=== PATIENT | female | born 1965 | race Caucasian/White ===

== ENCOUNTER 2017-02-14 16:06 | Inpatient (IN) | payer MEDICARE, MEDICAID ==
[~2017-02-14] VITALS: Ht 160 cm; Wt 54.7 kg
[~2017-02-14 16:06] MED LIST: ADVIL200 M1 PO; ANAPROX DS550 MG PO; ATIVAN0.5 MG PO; AUGMENTIN 875 M1 TAB PO; CATAPRES0.1 MG PO; CIPROFLOXACIN500 MG PO; CLONIDINE0.1 MG; CLONIDINE0.1 MG PO; COREG25 MG PO; DIAZEPAM5 MG; FLEXERIL10 MG PO; HYDROCHLOROTHIAZIDE; KEFLEX500 MG PO; LISINOPRIL; LISINOPRIL PO; LISINOPRIL/HCTZ1 TA4 PO; LISINOPRIL5 MG PO; LOMOTIL 0.025 M1 TA1 PO; MAG-OX 400400 MG; MEDROL DOSEPAK4 MG PO; NAPROSYN500 MG PO; NICOTROL 10MG I1 BOX; NKHM; NORCO 5-325 TA1 EACH PO; ROBAXIN500 M1 PO; SYNTHROID,LEVO75 MCG PO; SYNTHROID,LEVO88 MCG PO; VALIUM10 MG PO; VIBRAMYCIN100 MG PO; VICODIN 5/500 505 MG PO; ZITHROMAX Z PA250 MG PO; ZOFRAN ODT4 MG SL
[2017-02-14 16:09] VITALS: BP 178/90
[2017-02-14] MEDS ORDERED: LISINOPRIL5 MG PO (16:14)
[2017-02-14] MEDS ORDERED: ACETAMINOPHEN-H1 TA2 PO (16:14)
[2017-02-14] MEDS ORDERED: LEVOTHYROXIN0.075 M1 PO (16:14)
[2017-02-14 16:38] VITALS: BP 168/82
[2017-02-14 16:48] LABS: BASO # 0.1 10*3/uL (0.0-0.1); BASO % 0.5 % (0.0-1.0); EOS # 0.3 10*3/uL (0.0-0.4); EOS % 3.5 % (1.0-4.0); HEMATOCRIT 49.3 % (37.0-47.0); HEMOGLOBIN 15.9 g/dl (12.0-16.0); LYMPH # 3.5 10*3/uL (1.3-4.4); LYMPH % 35.8 % (27.0-41.0); MEAN CELL VOLUME 103.8 fl (81.0-99.0); MEAN CORPUSCULAR HGB 33.5 pg (27.0-31.0); MEAN CORPUSCULAR HGB CONC 32.3 g/dl (33.0-37.0); MEAN PLATELET VOLUME 9.5 fl (9.6-12.3); MONO % 10.4 % (3.0-9.0); NEUT # 4.9 10*3/uL (2.3-7.9); NEUT % 49.6 % (47.0-73.0); PLATELET COUNT AUTOMATED 238 10*3/uL (130-400); RED BLOOD COUNT 4.75 10*6/uL (4.10-5.10); RED CELL DISTRI WIDTH 13.1 % (0-14.5); WHITE BLOOD COUNT 9.8 10*3/uL (4.8-10.8)
[2017-02-14 17:03] LABS: PROTHROMBIN TIME 11.1 SECONDS (9.0-12.4)
[2017-02-14 17:05] LABS: ALBUMIN 2.9 gm/dl (3.1-4.5); ALKALINE PHOSPHATASE 137 U/L (45-117); BILIRUBIN, TOTAL 0.2 mg/dl (0.2-1.0); BUN 3 mg/dl (7-24); C-REACTIVE PROTEIN 1.81 MG/DL (0-0.3); CARBON DIOXIDE 29 mmol/L (21-32); CHLORIDE 101 mmol/L (98-107); CKMB 0.8 ng/ml (0.5-3.6); CPK 60 U/L (26-192); EST GLOM FILT AFRICAN AMERICAN > 60 ml/min; GLUCOSE 102 mg/dL (65-99); MAGNESIUM 1.9 mg/dL (1.5-2.1); POTASSIUM 3.5 mmol/L (3.5-5.1); SGOT/AST 24 IU/L (3-35); SGPT/ALT 18 U/L (12-78); SODIUM 139 mmol/L (136-145); TOTAL PROTEIN 7.5 gm/dL (6.4-8.2); TROPONIN I < 0.015 ng/ml (<0.045)
[2017-02-14 18:54] VITALS: BP 156/83
[2017-02-14 20:00] VITALS: BP 158/79
[2017-02-15] VITALS: BP 163/83
[2017-02-15 06:19] LABS: HEMOGLOBIN 14.6 g/dl (12.0-16.0); MEAN CELL VOLUME 102.3 fl (81.0-99.0); MEAN CORPUSCULAR HGB CONC 33.2 g/dl (33.0-37.0); MEAN PLATELET VOLUME 9.5 fl (9.6-12.3); PLATELET COUNT AUTOMATED 209 10*3/uL (130-400); RED CELL DISTRI WIDTH 12.8 % (0-14.5); WHITE BLOOD COUNT 2.9 10*3/uL (4.8-10.8)
[2017-02-15 06:40] LABS: BUN 3 mg/dl (7-24); CARBON DIOXIDE 25 mmol/L (21-32); CHLORIDE 96 mmol/L (98-107); CHOLESTEROL 91 mg/dL (<200); EST GLOM FILT AFRICAN AMERICAN > 60 ml/min; FREE T4 1.59 ng/dl (0.76-1.46); GLUCOSE 166 mg/dL (65-99); HDL CHOLESTEROL 45 mg/dl (40-60); LDL CHOLESTEROL 34 mg/dL (9-159); PHOSPHOROUS 3.5 mg/dL (2.5-4.9); SODIUM 138 mmol/L (136-145); TRIGLYCERIDES 59 mg/dl (<150); VLDL CHOLESTEROL 12 mg/dL (6-40)
[2017-02-15 07:12] LABS: MONOCYTE # 0.1 10*3/uL (0.1-1.0); NEUTROPHIL # 1.9 10*3/uL (2.3-7.9); NEUTROPHILS 64 % (47-73); PLATELET SUFFICIENCY NORMAL (NORMAL); ROULEAUX SLIGHT; TOTAL CELLS COUNTED 100 #CELLS
[2017-02-15 07:30] LABS: THYROID STIM HORMONE (HS) 0.049 uIU/ml (0.358-4.75)
[2017-02-15 08:00] VITALS: BP 160/72
[2017-02-15 08:09] LABS: FOLIC ACID 2.93 ng/mL (>5.38); VITAMIN D, 25-HYDROXY 16.4 ng/mL (30-100)
[2017-02-15 12:00] VITALS: BP 136/71
[2017-02-15 16:00] VITALS: BP 155/68
[2017-02-15 20:00] VITALS: BP 125/82
[2017-02-16] VITALS: BP 149/71
[2017-02-16 06:47] LABS: HEMOGLOBIN 15.2 g/dl (12.0-16.0); LYMPH # 1.4 10*3/uL (1.3-4.4); LYMPH % 20.3 % (27.0-41.0); MEAN CELL VOLUME 102.7 fl (81.0-99.0); MEAN CORPUSCULAR HGB 33.9 pg (27.0-31.0); MEAN PLATELET VOLUME 9.6 fl (9.6-12.3); MONO # 0.2 10*3/uL (0.1-1.0); MONO % 2.8 % (3.0-9.0); NEUT # 5.1 10*3/uL (2.3-7.9); NEUT % 76.3 % (47.0-73.0); PLATELET COUNT AUTOMATED 237 10*3/uL (130-400); RED BLOOD COUNT 4.48 10*6/uL (4.10-5.10); RED CELL DISTRI WIDTH 12.9 % (0-14.5); WHITE BLOOD COUNT 6.7 10*3/uL (4.8-10.8)
[2017-02-16 07:13] LABS: BUN 5 mg/dl (7-24); CARBON DIOXIDE 29 mmol/L (21-32); CHLORIDE 98 mmol/L (98-107); EST GLOM FILT AFRICAN AMERICAN > 60 ml/min; GLUCOSE 136 mg/dL (65-99); POTASSIUM 3.9 mmol/L (3.5-5.1); SODIUM 138 mmol/L (136-145)
[2017-02-16 08:00] VITALS: BP 126/76
[2017-02-16] MEDS ORDERED: D-1000 185 MG-11 TAB PO (10:45)
[2017-02-16] MEDS ORDERED: PREDNISONE10 MG PO (10:46)
[2017-02-16] MEDS ORDERED: LEVAQUIN500 M2 PO (10:48)
[2017-02-16] MEDS ORDERED: NATURE'S BLEND F1 MG PO (10:49)
== END 2017-02-16 12:45 | disposition home or self-care (01) | DRG 191 ==
LOC: ED 16:06 → EDHOLD 17:42 → 5E 17:42
PROVIDERS: Emergency Medicine; Hospitalist; Student in an Organized Health Care Education/Training Program
DX: J44.1 Chronic obstructive pulmonary disease with (acute) exacerbation (principal); E44.0 Moderate protein-calorie malnutrition; D75.89 Other specified diseases of blood and blood-forming organs; I10 Essential (primary) hypertension; E78.5 Hyperlipidemia, unspecified; E03.9 Hypothyroidism, unspecified; D72.819 Decreased white blood cell count, unspecified; E87.6 Hypokalemia; E55.9 Vitamin D deficiency, unspecified; E53.8 Deficiency of other specified B group vitamins; F17.210 Nicotine dependence, cigarettes, uncomplicated; M81.0 Age-related osteoporosis without current pathological fracture; M48.00 Spinal stenosis, site unspecified; Z71.6 Tobacco abuse counseling; Z82.5 Family history of asthma and other chronic lower respiratory diseases; Z82.49 Family history of ischemic heart disease and other diseases of the circulatory system; Z86.73 Personal history of transient ischemic attack (TIA), and cerebral infarction without residual deficits; Z88.6 Allergy status to analgesic agent; Z88.1 Allergy status to other antibiotic agents; Z88.8 Allergy status to other drugs, medicaments and biological substances; Z79.1 Long term (current) use of non-steroidal anti-inflammatories (NSAID); Z79.899 Other long term (current) drug therapy; Z68.21 Body mass index [BMI] 21.0-21.9, adult; Z82.3 Family history of stroke

== ENCOUNTER → 2017-05-08 | Outpatient (CLI) | payer MEDICARE, MEDICAID ==
[~2017-05-08] MED LIST changes: +ACETAMINOPHEN-H1 TA2 PO; +D-1000 185 MG-11 TAB PO; +LEVAQUIN500 M2 PO; +LEVOTHYROXIN0.075 M1 PO; +NATURE'S BLEND F1 MG PO; +PREDNISONE10 MG PO
== END | disposition home or self-care (01) ==
LOC: RAD 11:51
DX: J43.8 Other emphysema (principal); I10 Essential (primary) hypertension; J40 Bronchitis, not specified as acute or chronic; Z87.891 Personal history of nicotine dependence; Z86.73 Personal history of transient ischemic attack (TIA), and cerebral infarction without residual deficits

== ENCOUNTER 2017-06-05 19:34 | Emergency (ER) | payer MEDICARE, MEDICAID ==
[~2017-06-05] VITALS: Ht 160 cm; Wt 53.5 kg
[2017-06-05 20:55] LABS: BASO # 0.1 10*3/uL (0.0-0.1); BASO % 0.5 % (0.0-1.0); EOS # 0.3 10*3/uL (0.0-0.4); EOS % 2.7 % (1.0-4.0); HEMATOCRIT 48.3 % (37.0-47.0); HEMOGLOBIN 15.9 g/dl (12.0-16.0); LYMPH # 4.4 10*3/uL (1.3-4.4); LYMPH % 40.4 % (27.0-41.0); MEAN CELL VOLUME 98.2 fl (81.0-99.0); MEAN CORPUSCULAR HGB 32.3 pg (27.0-31.0); MEAN CORPUSCULAR HGB CONC 32.9 g/dl (33.0-37.0); MEAN PLATELET VOLUME 9.5 fl (9.6-12.3); MONO # 0.8 10*3/uL (0.1-1.0); MONO % 7.7 % (3.0-9.0); NEUT # 5.3 10*3/uL (2.3-7.9); NEUT % 48.5 % (47.0-73.0); PLATELET COUNT AUTOMATED 230 10*3/uL (130-400); RED BLOOD COUNT 4.92 10*6/uL (4.10-5.10); RED CELL DISTRI WIDTH 13.2 % (0-14.5)
[2017-06-05 21:03] LABS: INTERNATIONAL NORM RATIO 1.1 (2.0-3.5)
[2017-06-05 21:10] LABS: ALBUMIN 2.7 gm/dl (3.1-4.5); ALKALINE PHOSPHATASE 168 U/L (45-117); BUN 2 mg/dl (7-24); CHLORIDE 100 mmol/L (98-107); CREATININE 0.73 mg/dL (0.55-1.02); LIPASE 92 U/L (73-393); MAGNESIUM 1.7 mg/dL (1.5-2.1); POTASSIUM 4.1 mmol/L (3.5-5.1); SGOT/AST 17 IU/L (3-35); SGPT/ALT 16 U/L (12-78); SODIUM 136 mmol/L (136-145)
[2017-06-05 21:13] LABS: ACETAMINOPHEN (TYLENOL) < 2.0 ug/ml (10-30); TROPONIN I < 0.015 ng/ml (<0.045)
[2017-06-05 22:44] LABS: BILIRUBIN NEGATIVE (NEGATIVE); BLOOD NEGATIVE (NEGATIVE); CLARITY CLEAR (CLEAR); COLOR YELLOW (YELLOW); GLUCOSE NEGATIVE (NEGATIVE); KETONE NEGATIVE (NEGATIVE); LEUKO ESTERASE TRACE (NEGATIVE); NITRITE NEGATIVE (NEGATIVE); PH 5.5 (5.0-9.0); SPECIFIC GRAVITY <= 1.005 (1.005-1.030); UROBILINOGEN 0.2 E.U./dl (0.2-1.0)
[2017-06-05 22:53] LABS: URINE AMPHETAMINES < 1000 (1000ng/ml); URINE BARBITURATES < 200 (200ng/ml); URINE BENZODIAZEPINES > 200 (200ng/ml); URINE CANNABINOIDS (THC) < 50 (50ng/ml); URINE COCAINE < 300 (300ng/ml); URINE METHADONE < 300 (300ng/ml); URINE OPIATES > 300 (300ng/ml)
[2017-06-05 22:55] LABS: URINE PHENCYCLIDINE < 25 (25ng/ml)
[2017-06-05 22:58] LABS: BACTERIA TRACE; EPITHELIAL CELLS 15-20; RBC 0-2 rbc/hpf (0-2)
[2017-06-05] MEDS ORDERED: CYCLOBENZAPRINE5 M3 PO (23:21)
== END 2017-06-05 23:30 | disposition home or self-care (01) ==
LOC: ED 19:34
PROVIDERS: Emergency Medicine Emergency Medical Services
DX: M54.12 Radiculopathy, cervical region (principal); F32.9 Major depressive disorder, single episode, unspecified; F17.210 Nicotine dependence, cigarettes, uncomplicated; J44.9 Chronic obstructive pulmonary disease, unspecified; E78.5 Hyperlipidemia, unspecified; I10 Essential (primary) hypertension; E03.9 Hypothyroidism, unspecified; Z79.899 Other long term (current) drug therapy; Z88.1 Allergy status to other antibiotic agents; Z98.890 Other specified postprocedural states; Z90.89 Acquired absence of other organs; Z88.6 Allergy status to analgesic agent; Z86.73 Personal history of transient ischemic attack (TIA), and cerebral infarction without residual deficits

== ENCOUNTER 2017-06-12 12:21 | Emergency (ER) | payer MEDICARE, MEDICAID ==
[~2017-06-12] VITALS: Ht 160 cm; Wt 53.5 kg
[~2017-06-12 12:21] MED LIST changes: +CYCLOBENZAPRINE5 M3 PO
[2017-06-12 14:20] LABS: BASO # 0.1 10*3/uL (0.0-0.1); BASO % 0.5 % (0.0-1.0); EOS # 0.3 10*3/uL (0.0-0.4); EOS % 2.6 % (1.0-4.0); HEMATOCRIT 47.8 % (37.0-47.0); LYMPH # 4.4 10*3/uL (1.3-4.4); LYMPH % 46.5 % (27.0-41.0); MEAN CELL VOLUME 97.6 fl (81.0-99.0); MEAN CORPUSCULAR HGB 32.7 pg (27.0-31.0); MEAN CORPUSCULAR HGB CONC 33.5 g/dl (33.0-37.0); MEAN PLATELET VOLUME 9.3 fl (9.6-12.3); MONO # 0.7 10*3/uL (0.1-1.0); MONO % 7.2 % (3.0-9.0); NEUT # 4.1 10*3/uL (2.3-7.9); PLATELET COUNT AUTOMATED 182 10*3/uL (130-400); RED CELL DISTRI WIDTH 13.5 % (0-14.5); WHITE BLOOD COUNT 9.5 10*3/uL (4.8-10.8)
[2017-06-12 14:28] LABS: ACT PARTIAL THROMBO TIME 25.7 SECONDS (20.8-31.5); INTERNATIONAL NORM RATIO 1.1 (2.0-3.5)
[2017-06-12 14:46] LABS: ALBUMIN 2.6 gm/dl (3.1-4.5); ALKALINE PHOSPHATASE 163 U/L (45-117); BUN 2 mg/dl (7-24); CHLORIDE 102 mmol/L (98-107); CREATININE 0.76 mg/dL (0.55-1.02); POTASSIUM 3.8 mmol/L (3.5-5.1); SGOT/AST 18 IU/L (3-35); SGPT/ALT 13 U/L (12-78); SODIUM 140 mmol/L (136-145); TOTAL PROTEIN 6.9 gm/dL (6.4-8.2)
[2017-06-12 14:47] LABS: ETHYL ALCOHOL < 3.0 mg/dl (<3); TROPONIN I < 0.015 ng/ml (<0.045)
== END 2017-06-12 16:56 | disposition short-term general hospital (02) ==
LOC: ED 12:21
PROVIDERS: Physician Assistant
DX: I63.9 Cerebral infarction, unspecified (principal); F17.200 Nicotine dependence, unspecified, uncomplicated; Z98.890 Other specified postprocedural states; Z90.89 Acquired absence of other organs; Z79.899 Other long term (current) drug therapy; Z88.1 Allergy status to other antibiotic agents; Z88.6 Allergy status to analgesic agent

== ENCOUNTER 2017-07-17 15:14 | Inpatient (IN) | payer MEDICARE, MEDICAID ==
[~2017-07-17] VITALS: Ht 160 cm; Wt 52.3 kg
--- NOTE | ~2017-07-17 | DS ---
[place], [place] DISCHARGE SUMMARY [facility] [id number] UNIT #: [id number] ROOM: 427 DOCTOR: HARVEY VASQUEZ MD BIRTHDATE: [birth year] DOS: 07/19/2017 HOSPITAL COURSE: This patient is not known to me, comes in with low potassium from the doctor's office. Potassium was 2.2. The patient was admitted. After admission was given IV and p.o. and next day continued to be on the low side. We continued the IV fluids and continued repeat potassium supplementation. This morning's labs are not available yet, but I am hoping to have it soon and if it looks good, the patient should be able to go home and follow up with her PCP. The patient used to take ____, which she stopped taking on her own because it was upsetting the stomach. Advised the patient ____ restart the medication. DISCHARGE MEDICATIONS: Coreg 12.5 twice a day, lisinopril 5 daily, levothyroxine 75 mcg at bedtime, [place] 5 t.i.d. p.r.n., vitamin D 1000 units daily, Flexeril 5 b.i.d. p.r.n., potassium 20 daily, atorvastatin 40 daily, Phenergan 25 at bedtime, aspirin 81 daily, tramadol 50 q. 4 hours p.r.n., Remeron 15 at bedtime, thiamine 100 daily, Ventolin 2 puffs t.i.d. p.r.n. for shortness of breath, senna 8.6 mg daily. DIAGNOSES: 1. Hypokalemia. 2. History of cerebrovascular accident. 3. Benign hypertension. 4. Chronic headaches. 5. Moderate nicotine abuse. 6. Chronic back pain. HARVEY VASQUEZ MD CM:DISCHARG [id number] HARVEY VASQUEZ MD 07/19/17 1703 interface
--- NOTE | ~2017-07-17 | PR ---
[place], [place] PROGRESS NOTE NAME: AMELIA OWUSU [facility] #: [id number] UNIT #: [id number] ROOM: 427 DOCTOR: HARVEY VASQUEZ MD BIRTHDATE: [birth year] DOS: SUBJECTIVE: The patient is doing fine without any complaints. We are waiting her blood work this morning. OBJECTIVE: VITAL SIGNS: Blood pressure is 140/60, pulse of 80, respirations 20, temperature 98.8. LUNGS: Clear. HEART: Regular. ABDOMEN: Soft. EXTREMITIES: Without any edema. ASSESSMENT AND PLAN: Hypokalemia. Supplementation was given both IV and p.o. If the labs do look better, we are planning to discharge her to home today. HARVEY VASQUEZ MD CM:PNTRANS [phone] HARVEY VASQUEZ MD 07/31/17 0955 interface
--- NOTE | ~2017-07-17 | WRIGHTHP ---
[place], [place] PATIENT HISTORY AND PHYSICAL EXAM NAME: AMELIA OWUSU [facility] #: [id number] UNIT #: [id number] ROOM: 427 DOCTOR: HARVEY VASQUEZ MD BIRTHDATE: [birth year] DOS: 07/17/2017 HISTORY OF PRESENT ILLNESS: The patient is a 51-year-old, not known to me, comes in with complaints of low potassium. The patient states that she had blood work yesterday and the doctor's office called saying that her potassium was too low and so was sent out to the Emergency Room. She does not have any complaints of chest pains, palpitations, shortness of breath. She has no dizziness, lightheadedness, does not have any fever or chills. She used to take potassium supplements, but has not taken it for a month or so. PAST MEDICAL HISTORY: Significant for: 1. History of a CVA, for which she was hospitalized in May in [facility]. 2. Benign hypertension. 3. Continued nicotine abuse. 4. COPD. 5. Chronic back pain. MEDICATIONS: That she is on are Proventil p.r.n., aspirin 81 daily, atorvastatin 40 daily, Coreg 12.5 b.i.d., vitamin D 1000 units daily, Flexeril 5 b.i.d., Benadryl 25 at bedtime, levothyroxine 75 mcg at bedtime, Remeron 15 at bedtime, lisinopril 5 mg daily. SOCIAL HISTORY: Smoker of about 1 to 1-1/2 pack of cigarettes a day. She quit smoking about a month ago. After the stroke, she has not had any cigarettes. PHYSICAL EXAMINATION: GENERAL: She is awake and alert and oriented. VITAL SIGNS: Graphic trend shows blood pressure 162/86, pulse of 82, respirations 18, temperature 98.3. LUNGS: Clear. HEART: Regular. ABDOMEN: Soft, scaphoid. EXTREMITIES: Without any edema. NEUROLOGIC: No neurological deficits noticed. ASSESSMENT AND PLAN: 1. Hypokalemia. Potassium level is quite low. She was monitored and admitted, supplementation, both IV and p.o. have been ordered. 2. Hypomagnesemia. Supplements have been ordered. 3. Benign hypertension, fairly controlled. 4. History of carotid atherosclerosis with cerebrovascular accident. The patient was receiving PT, OT at home, but does not require any PT at this present time in the hospital. I will repeat labs again tomorrow. If it looks good, the plan is to discharge her to home tomorrow. [place], [place] PATIENT HISTORY AND PHYSICAL EXAM NAME: AMELIA OWUSU UNIT #: [id number] ROOM: [facility] DOCTOR: HARVEY VASQUEZ MD BIRTHDATE: [birth year] HARVEY VASQUEZ MD CM:HISPHYS:PATIENT HISTORY AND PHYSICAL EXAMINATION 8 HARVEY VASQUEZ MD 07/31/1755 interface
[2017-07-17 15:14] VITALS: BP 152/94
[~2017-07-17 15:14] MED LIST changes: -ASPIRIN CHEWABL81 MG PO; -BANOPHEN25 MG PO; -K-TAB20 MEQ PO; -LIPITOR40 MG PO; -MAGOX 400400 MG PO; -MIRTAZAPINE15 M1 PO; -NATURE'S BLEND100 M2 PO; -SENNA8.6 MG PO; -TRAMADOL HCL50 MG PO; -VENTOLIN,PR2 MG/5 ML PO
[2017-07-17 15:56] LABS: BASO # 0.1 10*3/uL (0.0-0.1); BASO % 0.5 % (0.0-1.0); EOS # 0.2 10*3/uL (0.0-0.4); EOS % 2.1 % (1.0-4.0); HEMATOCRIT 33.4 % (37.0-47.0); HEMOGLOBIN 11.1 g/dl (12.0-16.0); LYMPH # 3.9 10*3/uL (1.3-4.4); LYMPH % 34.7 % (27.0-41.0); MEAN CELL VOLUME 94.6 fl (81.0-99.0); MEAN CORPUSCULAR HGB 31.4 pg (27.0-31.0); MEAN CORPUSCULAR HGB CONC 33.2 g/dl (33.0-37.0); MEAN PLATELET VOLUME 9.4 fl (9.6-12.3); MONO # 0.8 10*3/uL (0.1-1.0); MONO % 6.9 % (3.0-9.0); NEUT # 6.2 10*3/uL (2.3-7.9); NEUT % 55.5 % (47.0-73.0); PLATELET COUNT AUTOMATED 334 10*3/uL (130-400); RED BLOOD COUNT 3.53 10*6/uL (4.10-5.10); RED CELL DISTRI WIDTH 13.1 % (0-14.5); WHITE BLOOD COUNT 11.1 10*3/uL (4.8-10.8)
[2017-07-17 16:00] VITALS: BP 161/87
[2017-07-17 16:07] LABS: ACT PARTIAL THROMBO TIME 25.3 SECONDS (20.8-31.5); INTERNATIONAL NORM RATIO 1.1 (2.0-3.5)
[2017-07-17 16:13] LABS: ALBUMIN 1.8 gm/dl (3.1-4.5); ALKALINE PHOSPHATASE 157 U/L (45-117); BUN 5 mg/dl (7-24); CHLORIDE 99 mmol/L (98-107); CREATININE 0.73 mg/dL (0.55-1.02); LIPASE 166 U/L (73-393); SGOT/AST 19 IU/L (3-35); SGPT/ALT 16 U/L (12-78); SODIUM 141 mmol/L (136-145); TOTAL PROTEIN 6.6 gm/dL (6.4-8.2)
[2017-07-17 16:14] LABS: TROPONIN I < 0.015 ng/ml (<0.045)
[2017-07-17 16:24] LABS: POTASSIUM 2.2 mmol/L (3.5-5.1)
[2017-07-17] MEDS ORDERED: K-TAB20 MEQ PO (16:52)
[2017-07-17] MEDS ORDERED: BANOPHEN25 MG PO (16:53)
[2017-07-17] MEDS ORDERED: LIPITOR40 MG PO (16:53)
[2017-07-17] MEDS ORDERED: ASPIRIN CHEWABL81 MG PO (16:54)
[2017-07-17] MEDS ORDERED: MIRTAZAPINE15 M1 PO (16:56)
[2017-07-17] MEDS ORDERED: TRAMADOL HCL50 MG PO (16:56)
[2017-07-17] MEDS ORDERED: SENNA8.6 MG PO (16:57)
[2017-07-17] MEDS ORDERED: NATURE'S BLEND100 M2 PO (16:59)
[2017-07-17] MEDS ORDERED: VENTOLIN,PR2 MG/5 ML PO (17:00)
--- NOTE | 2017-07-17 17:38 | NUR ---
PATIENT HAS BED WAITING ON FLOOR TO CALL BACK THE ROOM IS BEING CLEANED
--- NOTE | 2017-07-17 17:50 | NUR ---
PATIENT WITH MAG SULFATE INFUSING AT TIME OF ADMISSION
--- NOTE | 2017-07-17 17:56 | NUR ---
DR. VASQUEZ CALLED AND ORDERS RECIEVED. SEE ORDERS DOCUMENTATION. DR. VASQUEZ HAD NO OTHER CONCERNS AT THIS TIME.
--- NOTE | 2017-07-17 17:56 | NUR ---
A 51, admitted to , under the services of HARVEY Lopez MD with a diagnosis of HYPOKALEMIA. Chief complaint is HYPOKALEMIA. Patient arrived via OTHER from ER. Monitor applied. Initial assessment completed. Vital signs taken and recorded. HARVEY LOPEZ MD notified of admission to the unit. Orders received. See assessment for past medical history, medications and allergies. Patient and/or family oriented to unit. [facility]. Clothing/patient valuable form completed. JEB MUNOZ
[2017-07-17 18:00] VITALS: BP 140/90
[2017-07-17 20:00] VITALS: BP 153/71
--- NOTE | 2017-07-17 20:00 | NUR ---
ASSUMED CARE OF PATIENT. ASSESSMENT COMPLETE. RESTING IN BED. NO VOICED COMPLAINTS. CALL LIGHT IN REACH. WILL CONTINUE TO MONITOR.
--- NOTE | 2017-07-17 20:28 | NUR ---
MEDICATED WITH PRN NORCO FOR C/O ARM PAIN. RATES 06/06.
--- NOTE | 2017-07-17 21:30 | NUR ---
PER PATIENT, EARLIER NORCO EFFECTIVE
[2017-07-18] VITALS: BP 161/87
[2017-07-18 00:30] VITALS: BP 150/80
--- NOTE | 2017-07-18 03:12 | NUR ---
MEDICATED WITH PRN NORCO FOR C/O HEADACHE. RATES 01/04.
[2017-07-18 07:05] LABS: BUN 6 mg/dl (7-24); CHLORIDE 103 mmol/L (98-107); CREATININE 0.64 mg/dL (0.55-1.02); POTASSIUM 2.5 mmol/L (3.5-5.1); SODIUM 142 mmol/L (136-145)
--- NOTE | 2017-07-18 07:28 | NUR ---
CALLED DR VASQUEZ WITH CRITICAL LABS K 2.5, AND CA 6.9 ORDERS RECEIVED
[2017-07-18 08:00] VITALS: BP 162/86
--- NOTE | 2017-07-18 08:32 | NUR ---
PATIENT C/O HEADACHE. RATES 5/10 ON NUMERIC SCALE. NORCO GIVEN PER REQUEST AND ORDER.
--- NOTE | 2017-07-18 09:30 | NUR ---
PATIENT DENIES FURTHER PAIN. PRN EFFECTIVE
--- NOTE | 2017-07-18 10:00 | NUR ---
Vending Machine Filler in to talk to patient. Patient states lives at HOME with HER DAUGHTER AND FAMILY. There are 15 steps in the home. Physician: DR BORJA Pharmacy: [facility] [place] Home health services: NONE Patient's level of ADLs: INDEPENDENT Patient has working utilities: YES DME: HAS O2 AND NEB FROM [facility] [place] BUT NOT USING ANYMORE Follow-up physician's appointment after d/c: PREFERS TO MAKE HER OWN APPT Does patient want to access PORTAL?: Discharge plan HOME. GE MCLEOD
[2017-07-18 12:00] VITALS: BP 140/60
[2017-07-18 16:00] VITALS: BP 150/87
--- NOTE | 2017-07-18 17:01 | NUR ---
MEDICATED WITH PRN PO NORCO FOR HEADACHE RATES 10/10 ON PAIN SCALE.
--- NOTE | 2017-07-18 18:54 | NUR ---
PRN PO NORCO SOMEWHAT EFFECTIVE, PER PATIENT.
[2017-07-18 20:00] VITALS: BP 147/69
--- NOTE | 2017-07-18 20:00 | NUR ---
ASSUMED CARE OF PATIENT. ASSESSMENT COMPLETE. RESTING IN BED. NO VOICED COMPLAINTS. CALL LIGHT IN REACH. WILL CONTINUE TO MONITOR.
[2017-07-19] VITALS: BP 170/88
--- NOTE | 2017-07-19 02:00 | NUR ---
SLEEPING. RESP EASY AND NONLABORED ON ROOM AIR. NO DISTRESS NOTED. IVF INFUSING PER ORDER. CALL LIGHT IN REACH. WILL CONTINUE TO MONITOR.
--- NOTE | 2017-07-19 05:55 | NUR ---
MEDICATED WITH PRN NORCO FOR C/O HEADACHE. RATES 06/06.
--- NOTE | 2017-07-19 06:43 | NUR ---
PT STATES EARLIER NORCO HELPING
[2017-07-19 08:00] VITALS: BP 160/82
[2017-07-19 08:12] LABS: ALBUMIN 1.8 gm/dl (3.1-4.5); ALKALINE PHOSPHATASE 143 U/L (45-117); BUN 2 mg/dl (7-24); CHLORIDE 108 mmol/L (98-107); CREATININE 0.51 mg/dL (0.55-1.02); SGOT/AST 20 IU/L (3-35); SGPT/ALT 16 U/L (12-78); TOTAL PROTEIN 6.6 gm/dL (6.4-8.2)
[2017-07-19 08:26] LABS: SODIUM 140 mmol/L (136-145)
[2017-07-19 08:32] LABS: POTASSIUM 4.9 mmol/L (3.5-5.1)
[2017-07-19] MEDS ORDERED: MAGOX 400400 MG PO (08:39)
--- NOTE | 2017-07-19 12:35 | NUR ---
Discharge instructions reviewed with patient/family. Patient receptive and verbalizes understanding. Follow-up care arranged. Written instructions given to patient/family. Heplock removed. clinical research monitor discontinued. Pt picked up by family member/ AZALIA BRITT
== END 2017-07-19 12:35 | disposition home or self-care (01) | DRG 641 ==
LOC: ED 15:14 → 4E 15:51 → EDHOLD 15:51 → 4E 16:22
PROVIDERS: Emergency Medicine; ADMIT Internal Medicine
DX: E87.6 Hypokalemia (principal); E44.0 Moderate protein-calorie malnutrition; E83.42 Hypomagnesemia; I65.29 Occlusion and stenosis of unspecified carotid artery; E78.5 Hyperlipidemia, unspecified; I10 Essential (primary) hypertension; M81.0 Age-related osteoporosis without current pathological fracture; J44.9 Chronic obstructive pulmonary disease, unspecified; G89.29 Other chronic pain; M54.9 Dorsalgia, unspecified; R51 Headache; F17.210 Nicotine dependence, cigarettes, uncomplicated; Z88.1 Allergy status to other antibiotic agents; Z88.6 Allergy status to analgesic agent; Z88.8 Allergy status to other drugs, medicaments and biological substances; Z86.73 Personal history of transient ischemic attack (TIA), and cerebral infarction without residual deficits

== ENCOUNTER → 2017-07-17 | Outpatient (CLI) | payer MEDICARE, MEDICAID ==
[~2017-07-17] MED LIST changes: +ASPIRIN CHEWABL81 MG PO; +BANOPHEN25 MG PO; +K-TAB20 MEQ PO; +LIPITOR40 MG PO; +MAGOX 400400 MG PO; +MIRTAZAPINE15 M1 PO; +NATURE'S BLEND100 M2 PO; +SENNA8.6 MG PO; +TRAMADOL HCL50 MG PO; +VENTOLIN,PR2 MG/5 ML PO
[2017-07-17 13:07] LABS: HEMATOCRIT 36.1 % (37.0-47.0); HEMOGLOBIN 11.9 g/dl (12.0-16.0); MEAN CELL VOLUME 95.3 fl (81.0-99.0); MEAN CORPUSCULAR HGB 31.4 pg (27.0-31.0); MEAN PLATELET VOLUME 9.4 fl (9.6-12.3); RED BLOOD COUNT 3.79 10*6/uL (4.10-5.10); RED CELL DISTRI WIDTH 13.1 % (0-14.5); WHITE BLOOD COUNT 11.9 10*3/uL (4.8-10.8)
[2017-07-17 13:28] LABS: ALBUMIN 1.9 gm/dl (3.1-4.5); BUN 4 mg/dl (7-24); CHLORIDE 100 mmol/L (98-107); CHOLESTEROL 86 mg/dL (<200); CREATININE 0.77 mg/dL (0.55-1.02); SGOT/AST 21 IU/L (3-35); SGPT/ALT 16 U/L (12-78); SODIUM 139 mmol/L (136-145); TOTAL PROTEIN 7.1 gm/dL (6.4-8.2); TRIGLYCERIDES 94 mg/dl (<150); VLDL CHOLESTEROL 19 mg/dL (6-40)
[2017-07-17 13:35] LABS: ALKALINE PHOSPHATASE 168 U/L (45-117); FREE T4 1.19 ng/dl (0.76-1.46); HDL CHOLESTEROL 55 mg/dl (40-60); LDL CHOLESTEROL 12 mg/dL (9-159); THYROID STIM HORMONE (HS) 0.707 uIU/ml (0.358-4.75)
[2017-07-17 13:46] LABS: POTASSIUM 2.3 mmol/L (3.5-5.1)
== END | disposition home or self-care (01) ==
LOC: LAB 12:35
PROVIDERS: Family Medicine
DX: I10 Essential (primary) hypertension (principal); I63.9 Cerebral infarction, unspecified; E78.00 Pure hypercholesterolemia, unspecified; E55.9 Vitamin D deficiency, unspecified; E03.9 Hypothyroidism, unspecified

== ENCOUNTER 2017-08-24 17:49 | Emergency (ER) | payer MEDICARE, MEDICAID ==
[~2017-08-24] VITALS: Ht 160 cm; Wt 52.6 kg
[~2017-08-24 17:49] MED LIST changes: +ASPIRIN CHEWABL81 MG PO; +BANOPHEN25 MG PO; +K-TAB20 MEQ PO; +LIPITOR40 MG PO; +MAGOX 400400 MG PO; +MIRTAZAPINE15 M1 PO; +NATURE'S BLEND100 M2 PO; +SENNA8.6 MG PO; +TRAMADOL HCL50 MG PO; +VENTOLIN,PR2 MG/5 ML PO
[2017-08-24] MEDS ORDERED: NORCO 5-325 TA1 EACH PO (20:15)
== END 2017-08-24 20:46 | disposition home or self-care (01) ==
LOC: ED 17:49
DX: S42.212A Unspecified displaced fracture of surgical neck of left humerus, initial encounter for closed fracture (principal); S43.032A Inferior subluxation of left humerus, initial encounter; S40.012A Contusion of left shoulder, initial encounter; S00.83XA Contusion of other part of head, initial encounter; J44.9 Chronic obstructive pulmonary disease, unspecified; E78.5 Hyperlipidemia, unspecified; F17.200 Nicotine dependence, unspecified, uncomplicated; Z98.890 Other specified postprocedural states; Z86.73 Personal history of transient ischemic attack (TIA), and cerebral infarction without residual deficits; Z90.89 Acquired absence of other organs; Z79.82 Long term (current) use of aspirin; Z88.1 Allergy status to other antibiotic agents; Z88.6 Allergy status to analgesic agent; W10.8XXA Fall (on) (from) other stairs and steps, initial encounter; Y93.89 Activity, other specified; Y92.89 Other specified places as the place of occurrence of the external cause; Y99.9 Unspecified external cause status

== ENCOUNTER 2017-09-28 19:57 | Inpatient (IN) | payer MEDICARE, MEDICAID ==
[~2017-09-28] VITALS: Ht 160 cm; Wt 56.8 kg
--- NOTE | ~2017-09-28 | DS ---
[place], [place] DISCHARGE SUMMARY NAME: AMELIA OWUSU [facility] #: [id number] UNIT #: [id number] ROOM: 403 DOCTOR: RADHA BOLTON MD BIRTHDATE: [birth year] DOS: 09/30/2017 DISCHARGE DIAGNOSES: 1. Hyponatremia secondary to excessive alcohol and drinking tea, resolved. 2. Chronic urinary retention. The patient had a Torres catheter placed during this admission. The patient had 900 mL of retained urine. 3. Advanced disability and multiple falls and adult failure to thrive. 4. Chronic back pains, fracture of the sacrum related to falls. 5. Hypokalemia, treated with supplements. 6. Benign essential hypertension. 7. Nicotine smoke dependence. HOSPITAL COURSE: The patient was admitted by Dr. Cait Stanley when she presented with multiple falls and she was not feeling good. The patient lives at home. The patient has advanced disability and was living at home with the help of her family. The patient says that she is able to go home and she has lot of help at home. She does not want to be sent to a snf facility and she is feeling much better. Hyponatremia related to patient drinking significant amount of ice tea and also heavy alcoholism. The patient's sodium level has returned to normal. Adult failure to thrive, recurrent falls and fracture of the sacrum in the past. Physical Therapy consult was ordered. Hypokalemia, treated with extra supplements. Benign essential hypertension. Blood pressures are controlled. They were monitored during her stay at the hospital. Chronic urine retention. The patient had 900 mL of urine in her bladder when Torres catheter was placed. The patient to be sent home with Torres catheter and asked to follow up with the urologist, Dr. Jorge or the urologist of her choice. Benign essential hypertension, treated and controlled with lisinopril and Coreg. Hypothyroidism, treated with levothyroxine. The patient has to follow up with her PCP, Dr. Rohan Mckenna this week and also follow up with Urology. The patient appears to have achieved maximum benefit from this admission because her sodium is normal and she is feeling well. The patient wants to go home rather than going to snf facility for rehabilitation. LABORATORY DATA: Urine cultures were negative. Normal serum electrolytes, sodium at 136, potassium normal at 3.6. Hemoglobin 8.8. Venous Dopplers of the lower extremities without any evidence of DVT. DISCHARGE MANAGEMENT: Mirtazapine 15 mg at bedtime, lisinopril 5 mg daily, [place], [place] DISCHARGE SUMMARY NAME: AMELIA OWUSU UNIT #: [id number] ROOM: 403 DOCTOR: CHE HERNANDEZ,RADHA Bhardwaj BIRTHDATE: [birth year] levothyroxine 75 mcg daily, thiamine 100 mg a day, sennoside A and B 8.6 mg daily, potassium chloride 20 mEq daily, Coreg 12.5 mg b.i.d., Lipitor 40 mg a day, aspirin 81 mg a day, Tylenol 1000 mg every 8 hours, Advil 600 mg every 8 hours as needed, can be used together. FOLLOWUP: With PCP, Dr. Rohan Mckenna this week and follow up with urologist of her choice or Dr. Jorge for chronic urine retention. RADHA BOLTON MD CM:BOOKER [phone] RADHA BOLTON MD 09/30/171932 interface
--- NOTE | ~2017-09-28 | WRIGHTHP ---
[place], [place] PATIENT HISTORY AND PHYSICAL EXAM NAME: AMELIA OWUSU [facility] #: [id number] UNIT #: [id number] ROOM: 403 DOCTOR: HARVEY VASQUEZ MD BIRTHDATE: [birth year] DOS: 09/29/2017 HISTORY OF PRESENT ILLNESS: The patient is 51 years old. The patient comes in to the Emergency Room stating that she has had multiple falls and she was not feeling good yesterday, so decided to come in. She denies having any chest pains, palpitations, does not have any fever or chills, does not have any abdominal pain, nausea, any emesis. On closer questioning, the patient states that her family would like her to go to a rehab facility. PAST MEDICAL HISTORY: Significant for: 1. Last hospitalization in 06/2017 with hypokalemia. 2. Heavy alcohol abuse. 3. Benign hypertension. 4. Chronic back pain. 5. Multiple falls from frailty and possibility of alcoholism. 6. Benign hypertension. 7. Monitor cigarette smoker. MEDICATIONS: She is on currently are aspirin 81; Coreg 12.5 b.i.d.; vitamin D 1000 units daily; cyclobenzaprine 5 b.i.d.; Banophen 25 at bedtime; [place] 5 several orders, q. 6, q. 4 and t.i.d.; levothyroxine 75 mcg at bedtime; lisinopril 5 daily; mirtazapine 15 at bedtime; nitrofurantoin 100 b.i.d.; potassium 20 daily; 100 daily. SOCIAL HISTORY: Smoker of about half pack of cigarettes a day. She drinks about 6-7 beers multiple times a week, also a couple of shots of tequila multiple times a week. PHYSICAL EXAMINATION: GENERAL: The patient is awake and alert and oriented, does not have any evidence of DTs or any anxiety. VITAL SIGNS: Blood pressure is 109/74, pulse of 90, respirations 20, temperature 99.4. LUNGS: Diminished breath sounds, clear. HEART: Regular. ABDOMEN: Soft. EXTREMITIES: Without any edema. Left arm in a sling rate. ASSESSMENT AND PLAN: 1. Multiple falls, with frailty and adult failure to thrive. Social service consult will be obtained to look at the nursing home home placement. 2. Hyponatremia, hypochloremia from heavy alcoholism. Serum osmolality, urine osmolality and urine electrolytes have been sent. I do not have the complete report yet. 3. Chronic back pain with falls and fracture of the sacrum. Continue same medications, I am not giving her anything new. 4. Hypokalemia. Supplementation has been ordered. 5. Hypertension, controlled. [place], [place] PATIENT HISTORY AND PHYSICAL EXAM NAME: AMELIA OWUSU UNIT #: [id number] ROOM: 403 DOCTOR: HARVEY VASQUEZ MD BIRTHDATE: [birth year] HARVEY VASQUEZ MD CM:HISPHYS:PATIENT HISTORY AND PHYSICAL EXAMINATION [phone] HARVEY VASQUEZ MD 09/29/17 0916 interface
[~2017-09-28 19:57] MED LIST changes: +MACROBID100 M1 PO
[2017-09-28 20:21] VITALS: BP 141/92
[2017-09-28 21:30] VITALS: BP 128/80
[2017-09-28 22:30] VITALS: BP 125/81
[2017-09-28 23:30] VITALS: BP 120/72
[2017-09-29] VITALS (10 sets, daily range): BP systolic 91–139; BP diastolic 65–80
[2017-09-29 02:36] LABS: BASO % 0.1 % (0.0-1.0); EOS # 0.1 10*3/uL (0.0-0.4); EOS % 1.4 % (1.0-4.0); HEMATOCRIT 25.5 % (37.0-47.0); HEMOGLOBIN 8.8 g/dl (12.0-16.0); LYMPH # 2.2 10*3/uL (1.3-4.4); LYMPH % 27.7 % (27.0-41.0); MEAN CELL VOLUME 92.1 fl (81.0-99.0); MEAN CORPUSCULAR HGB 31.8 pg (27.0-31.0); MEAN CORPUSCULAR HGB CONC 34.5 g/dl (33.0-37.0); MEAN PLATELET VOLUME 8.8 fl (9.6-12.3); MONO # 0.8 10*3/uL (0.1-1.0); MONO % 9.8 % (3.0-9.0); NEUT # 4.9 10*3/uL (2.3-7.9); NEUT % 60.7 % (47.0-73.0); PLATELET COUNT AUTOMATED 180 10*3/uL (130-400); RED BLOOD COUNT 2.77 10*6/uL (4.10-5.10); RED CELL DISTRI WIDTH 12.6 % (0-14.5)
[2017-09-29 02:51] LABS: ALBUMIN 2.9 gm/dl (3.1-4.5); ALKALINE PHOSPHATASE 114 U/L (45-117); BUN 5 mg/dl (7-24); CHLORIDE 88 mmol/L (98-107); CREATININE 0.59 mg/dL (0.55-1.02); POTASSIUM 3.9 mmol/L (3.5-5.1); SGOT/AST 18 IU/L (3-35); SGPT/ALT 20 U/L (12-78); SODIUM 124 mmol/L (136-145); TOTAL PROTEIN 7.3 gm/dL (6.4-8.2)
[2017-09-29 04:35] LABS: BILIRUBIN NEGATIVE (NEGATIVE); BLOOD TRACE-LYSED (NEGATIVE); CLARITY CLEAR (CLEAR); COLOR YELLOW (YELLOW); GLUCOSE NEGATIVE (NEGATIVE); KETONE NEGATIVE (NEGATIVE); LEUKO ESTERASE NEGATIVE (NEGATIVE); NITRITE POSITIVE (NEGATIVE); PH 5.5 (5.0-9.0); SPECIFIC GRAVITY <= 1.005 (1.005-1.030); UROBILINOGEN 0.2 E.U./dl (0.2-1.0)
[2017-09-29 04:41] LABS: BACTERIA 1+
[2017-09-29 04:42] LABS: EPITHELIAL CELLS 0-5
[2017-09-29] MEDS ORDERED: PROZAC10 MG PO (13:01)
[2017-09-29] MEDS ORDERED: OSCAL/D,OYSTER250 MG PO (13:01)
[2017-09-29] MEDS ORDERED: DAILY MULTIVIT1 EAC2 PO (13:02)
[2017-09-29] MEDS ORDERED: VITAMIN D50000 UNIT PO (13:02)
[2017-09-30] VITALS: BP 121/74
[2017-09-30 07:08] LABS: BUN 3 mg/dl (7-24); CHLORIDE 102 mmol/L (98-107); CREATININE 0.65 mg/dL (0.55-1.02)
[2017-09-30 07:21] LABS: POTASSIUM 3.6 mmol/L (3.5-5.1)
[2017-09-30 07:30] LABS: SODIUM 136 mmol/L (136-145)
[2017-09-30 08:00] VITALS: BP 122/76
[2017-09-30 12:00] VITALS: BP 149/70
[2017-09-30 16:00] VITALS: BP 152/71
== END 2017-09-30 20:45 | disposition other institution (70) | DRG 641 ==
LOC: ED 19:57 → 4E 09-29 03:47 → EDHOLD 09-29 03:47 → 4E 09-29 03:58
PROVIDERS: Emergency Medicine Emergency Medical Services; Internal Medicine
DX: E87.1 Hypo-osmolality and hyponatremia (principal); E03.9 Hypothyroidism, unspecified; E87.6 Hypokalemia; I10 Essential (primary) hypertension; G89.29 Other chronic pain; F10.20 Alcohol dependence, uncomplicated; R33.8 Other retention of urine; M54.9 Dorsalgia, unspecified; F17.210 Nicotine dependence, cigarettes, uncomplicated; R62.7 Adult failure to thrive; Z87.81 Personal history of (healed) traumatic fracture; W18.30XA Fall on same level, unspecified, initial encounter; Y93.89 Activity, other specified; Y92.89 Other specified places as the place of occurrence of the external cause; Y99.8 Other external cause status

== ENCOUNTER 2017-10-14 00:38 | Inpatient (IN) | payer MEDICARE, MEDICAID ==
[~2017-10-14] VITALS: Ht 160 cm; Wt 53.2 kg
[2017-10-14] VITALS (13 sets, daily range): BP systolic 75–140; BP diastolic 48–86
--- NOTE | ~2017-10-14 | PR ---
[place], [place] PROGRESS NOTE NAME: AMELIA OWUSU [facility] #: [id number] UNIT #: [id number] ROOM: 419 DOCTOR: HARVEY VASQUEZ MD BIRTHDATE: [birth year] DOS: 10/17/2017 SUBJECTIVE: The patient is doing better, does not have any new complaints. Her diarrhea seems to have slowed down. OBJECTIVE: VITAL SIGNS: Graphic trend shows blood pressure 110/77, pulse of 88, respirations 20, temperature 99.3. LUNGS: Clear. HEART: Regular. ABDOMEN: Obese. EXTREMITIES: Without any edema. LABORATORY DATA: Blood culture shows no bacterial growth. Stool culture was negative. No other labs available today. ASSESSMENT AND PLAN: 1. Acute kidney injury, resolved. IV fluids have been discontinued. 2. History of retention of urine. The patient off the Torres catheter and is voiding fine. 3. Cryptosporidium of the stool. The patient has ordered Flagyl. 4. Paralytic ileus, clinically improved. We will advance the diet. 5. History of chronic alcoholism. Discussed with [facility]. They will accept the patient. We will discharge her in the morning. HARVEY VASQUEZ MD CM:PNTRANS [id number] HARVEY VASQUEZ MD 10/19/17 1314 interface
--- NOTE | ~2017-10-14 | DS ---
[place], [place] DISCHARGE SUMMARY NAME: AMELIA OWUSU [facility] #: [id number] UNIT #: [id number] ROOM: 419 DOCTOR: HARVEY VASQUEZ MD BIRTHDATE: [birth year] DOS: 10/18/2017 The patient is 51 years old. She was admitted to the hospital on 10/14/2017 and discharged on 10/18/2017. DIAGNOSES: 1. Alcoholic encephalopathy. 2. Cryptosporidium diarrhea. 3. Acute kidney injury, possibly from acute tubular necrosis. 4. Hypokalemia. 5. Chronic alcoholism. 6. Benign hypertension. 7. Adult failure to thrive. 8. Frailty, with falls. 9. History of chronic back pain from a sacral fracture. 10. Benign hypertension. 11. Moderate cigarette smoker. 12. Hyponatremia, hypochloremia from alcohol abuse. 13. Chronic urinary retention. HOSPITAL COURSE: This is a 51-year-old patient who is known to me from a previous admission, was brought in after having multiple falls and not feeling good. By the time she arrived, she was frail and ill looking, could not remember the events prior to this admission, seems to have significant encephalopathy which was multifactorial. She was placed on IV fluids for acute kidney injury and electrolyte abnormalities. These have corrected and IV fluids have since been discontinued. She has chronic back pain, falls and fracture of the sacrum for which she has been started on PT, OT and she is starting to ambulate. Social service was consulted for placement to [place] and they have accepted her, so arrangements are being made for transfer. The patient continued to have paralytic ileus on x-rays of the abdomen, was kept n.p.o. and on IV fluids for the next several days and stool testing was done for diarrhea. This came back showing cryptosporidium and was placed on Flagyl. Her white cell count is normal. Kidney functions have normalized. Potassium still on the low side and she has received multiple supplementation. Acute abdominal series has finally showed improvement in the ileus and she is eating well. She did have a chronic indwelling Torres catheter, which was discontinued on admission and she has been voiding but did develop acute retention today morning and has been straight cathed for about a liter. Flomax was added. The patient is overall stable and can be transferred to [facility] today. DISCHARGE MEDICATIONS: Flagyl 500 mg t.i.d. for 7 more days, Flomax 0.4 mg daily, consult Dr. Cifuentes for chronic urinary retention, straight catheterization q. shift. Carvedilol 12.5 twice a day, levothyroxine 75 mcg daily, potassium 20 b.i.d., atorvastatin 40 daily, aspirin 81 daily, Prozac 10 daily, calcium 500 t.i.d., multivitamin 1 tablet daily, vitamin D 50,000 units once a week, Tylenol 650 q. 6 p.r.n. for pain. PT/OT consult. [place] diet. Please do a stool culture after the completion of [place], [place] DISCHARGE SUMMARY NAME: AMELIA OWUSU UNIT #: [id number] ROOM: 419 DOCTOR: HARVEY VASQUEZ MD BIRTHDATE: [birth year] the antibiotics for ova and parasites; isolate the patient. HARVEY VASQUEZ MD CM:BOOKER [id number] HARVEY VASQUEZ MD 10/19/17 1312 interface
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
--- NOTE | ~2017-10-14 | PR ---
[place], [place] PROGRESS NOTE NAME: AMELIA OWUSU [facility] #: [id number] UNIT #: [id number] ROOM: 419 DOCTOR: HARVEY VASQUEZ MD BIRTHDATE: [birth year] DOS: 10/16/2017 SUBJECTIVE: The patient is having no complaints except some abdominal discomfort, difficulty to eat and continued diarrhea. OBJECTIVE: VITAL SIGNS: Blood pressure is 138/76, pulse of 90, respirations 18, temperature 98.1. LUNGS: Clear. HEART: Regular. ABDOMEN: Soft, some slight distention noticed. Bowel sounds hypoactive, but present. EXTREMITIES: Without any edema. LABORATORY DATA: This morning, WBC count is 8.7, hemoglobin 9.8, hematocrit 28.4, platelets 346. BMP: Glucose 86, BUN 19, creatinine 0.8. Electrolytes are normal. Urine culture shows no bacterial growth. Ova and parasites show Cryptosporidium positive. Giardia was negative. ASSESSMENT AND PLAN: 1. A patient who presents with acute kidney injury. This has resolved with fluids. 2. History of Torres catheter placement for retention. She is voiding well after the Torres catheter was discontinued. 3. Diarrhea from Cryptosporidium. The patient has been placed on Flagyl. 4. Paralytic ileus, most likely from the diarrheal illness. An acute abdominal series is pending this morning. Dr. Donaldson is following the patient. 5. Hypokalemia. Supplementation has been ordered and is cleared. HARVEY VASQUEZ MD CM:PNTRANS [id number] HARVEY VASQUEZ MD 10/19/17 1315 interface
--- NOTE | ~2017-10-14 | PR ---
[place], [place] PROGRESS NOTE NAME: AMELIA OWUSU UNIT #: [id number] ROOM: [place] [address] DOCTOR: CHRISTINA HERNANDEZHARVEY BIRTHDATE: [birth year] DOS: 10/15/2017 SUBJECTIVE: The patient is sitting up in a chair, is much more awake and alert and oriented this morning, answers questions appropriately. OBJECTIVE: VITAL SIGNS: Blood pressure is 121/85, pulse of 90, respirations 22, temperature 97.4. LUNGS: Diminished breath sounds. No wheezes, rales or rhonchi heard. HEART: Regular. ABDOMEN: Obese, soft, slightly distended, bowel sounds present. EXTREMITIES: Without any edema. DIAGNOSTIC STUDIES: CT of the head shows chronic ischemic changes and encephalomalacia from a previous stroke. Drug screen shows presence of THC. Urinalysis is positive for blood and leukocytes. Awaiting culture report. WBC count is 8.3, hemoglobin 9.8, hematocrit 28.7, platelets 376. BMP: Glucose 116, BUN 30, creatinine 1.58. Electrolytes were fairly within normal limits. Urine culture showed no bacterial growth. ASSESSMENT AND PLAN: 1. A patient who presents with paralytic ileus, improving clinically. Acute abdominal series is pending today. If it shows improvement, the patient will be started on a regular diet. 2. Acute gastritis, alcoholic. The patient is on IV Protonix. Dr. Donaldson has been consulted for possible endoscopy because of continued abdominal discomfort and inability to eat. 3. History of retention of urine, for which the catheter was placed about a week ago and she was discharged at that time. We will discontinue Torres catheter to see whether she will develop any further retention. If she does, then I will contact Urology in another hospital to where she can be sent out. 4. Acute kidney disease, multifactorial, possibly from poor p.o. intake and prerenal azotemia. The patient's IV fluids will be continued, kidney function is improving. 5. Chronic alcoholism. She does not show any evidence of withdrawal on thiamin and IV fluids. 6. History of cerebrovascular accident with encephalomalacia and failure to thrive. PT/OT have been consulted and Social Service has been consulted for possible placement to a rehab center. [place], [place] PROGRESS NOTE NAME: AMELIA OWUSU UNIT #: [id number] ROOM: [place] [address] DOCTOR: HARVEY VASQUEZ MD BIRTHDATE: [birth year] HARVEY VASQUEZ MD CM:PNTRANS [id number] HARVEY VASQUEZ MD 10/15/17 1134 interface
--- NOTE | ~2017-10-14 | PR ---
[place], [place] PROGRESS NOTE NAME: AMELIA OWUSU [facility] #: [id number] UNIT #: [id number] ROOM: 419 DOCTOR: HARVEY VASQUEZ MD BIRTHDATE: [birth year] DOS: 10/18/2017 SUBJECTIVE: The patient did develop some retention of urine during the night about close to a liter, so a straight catheterization was performed. She feels okay this morning. Does not have any new complaints. Had just 2 diarrheal bowel movements. OBJECTIVE: VITAL SIGNS: Blood pressure is 145/72, pulse of 117, respirations 18, temperature 97.7. LUNGS: Diminished breath sounds. No wheezes, rales or rhonchi heard. HEART: Regular. ABDOMEN: Obese, soft, nontender. EXTREMITIES: Without any edema. LABORATORY DATA: White cell count is 8.2, hemoglobin 8.6, hematocrit 25.8, platelets 270. Comprehensive glucose 81, BUN 5, creatinine 0.5, sodium 131, potassium 3.4, chloride 98, bicarbonate 31. ASSESSMENT AND PLAN: 1. 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 2. Hypokalemia. Supplementations given. 3. Retention of urine. Have seen Dr. Cifuentes as an outpatient. He will straight cath if needed, Flomax has been added. May require a cystoscopy as an outpatient. We will make arrangements. 4. Adult failure to thrive. The patient has agreed to go to [facility], so arrangements are being made today. HARVEY VASQUEZ MD CM:PNTRANS [id number] HARVEY VASQUEZ MD 10/19/17 1313 interface
[~2017-10-14 00:38] MED LIST changes: +DAILY MULTIVIT1 EAC2 PO; +OSCAL/D,OYSTER250 MG PO; +PROZAC10 MG PO; +VITAMIN D50000 UNIT PO
[2017-10-14 01:27] LABS: BASO % 0.1 % (0.0-1.0); EOS % 0.1 % (1.0-4.0); HEMATOCRIT 34.7 % (37.0-47.0); LYMPH # 3.9 10*3/uL (1.3-4.4); LYMPH % 18.3 % (27.0-41.0); MEAN CELL VOLUME 89.2 fl (81.0-99.0); MEAN CORPUSCULAR HGB 30.8 pg (27.0-31.0); MEAN CORPUSCULAR HGB CONC 34.6 g/dl (33.0-37.0); MEAN PLATELET VOLUME 8.6 fl (9.6-12.3); MONO # 1.1 10*3/uL (0.1-1.0); MONO % 5.1 % (3.0-9.0); PLATELET COUNT AUTOMATED 500 10*3/uL (130-400); RED BLOOD COUNT 3.89 10*6/uL (4.10-5.10); RED CELL DISTRI WIDTH 12.7 % (0-14.5)
[2017-10-14 01:37] LABS: ACT PARTIAL THROMBO TIME 24.6 SECONDS (20.8-31.5); INTERNATIONAL NORM RATIO 1.1 (2.0-3.5)
[2017-10-14 01:44] LABS: ALBUMIN 3.4 gm/dl (3.1-4.5); ALKALINE PHOSPHATASE 306 U/L (45-117); BUN 33 mg/dl (7-24); CHLORIDE 77 mmol/L (98-107); CREATININE 4.07 mg/dL (0.55-1.02); LIPASE 90 U/L (73-393); POTASSIUM 3.2 mmol/L (3.5-5.1); SGOT/AST 15 IU/L (3-35); SGPT/ALT 15 U/L (12-78); SODIUM 121 mmol/L (136-145); TOTAL PROTEIN 8.1 gm/dL (6.4-8.2)
[2017-10-14 01:45] LABS: TROPONIN I < 0.015 ng/ml (<0.045)
[2017-10-14 05:12] LABS: BASO % 0.2 % (0.0-1.0); EOS # 0.1 10*3/uL (0.0-0.4); EOS % 0.3 % (1.0-4.0); HEMATOCRIT 29.7 % (37.0-47.0); HEMOGLOBIN 10.4 g/dl (12.0-16.0); LYMPH # 3.1 10*3/uL (1.3-4.4); LYMPH % 16.8 % (27.0-41.0); MEAN CELL VOLUME 91.4 fl (81.0-99.0); MEAN PLATELET VOLUME 8.6 fl (9.6-12.3); MONO % 5.2 % (3.0-9.0); NEUT # 14.4 10*3/uL (2.3-7.9); PLATELET COUNT AUTOMATED 371 10*3/uL (130-400); RED BLOOD COUNT 3.25 10*6/uL (4.10-5.10); RED CELL DISTRI WIDTH 12.5 % (0-14.5); WHITE BLOOD COUNT 18.6 10*3/uL (4.8-10.8)
[2017-10-14 05:25] LABS: CREATININE 3.36 mg/dL (0.55-1.02); POTASSIUM 3.3 mmol/L (3.5-5.1)
[2017-10-14 14:37] LABS: BILIRUBIN NEGATIVE (NEGATIVE); BLOOD 2+ (NEGATIVE); CLARITY SL CLOUDY (CLEAR); COLOR YELLOW (YELLOW); GLUCOSE NEGATIVE (NEGATIVE); KETONE NEGATIVE (NEGATIVE); LEUKO ESTERASE 1+ (NEGATIVE); NITRITE NEGATIVE (NEGATIVE); SPECIFIC GRAVITY 1.025 (1.005-1.030); UROBILINOGEN 0.2 E.U./dl (0.2-1.0)
[2017-10-14 14:46] LABS: URINE AMPHETAMINES < 1000 (1000ng/ml); URINE BARBITURATES < 200 (200ng/ml); URINE BENZODIAZEPINES < 200 (200ng/ml); URINE CANNABINOIDS (THC) > 50 (50ng/ml); URINE COCAINE < 300 (300ng/ml); URINE METHADONE < 300 (300ng/ml); URINE OPIATES < 300 (300ng/ml)
[2017-10-14 14:47] LABS: URINE PHENCYCLIDINE < 25 (25ng/ml)
[2017-10-14 15:10] LABS: BACTERIA TRACE; HYALINE CAST TNTC; WBC TNTC wbc/hpf (0-5)
[2017-10-15] VITALS: BP 93/69
[2017-10-15 04:00] VITALS: BP 131/81
[2017-10-15 06:03] LABS: EOS % 0.1 % (1.0-4.0); HEMATOCRIT 28.7 % (37.0-47.0); HEMOGLOBIN 9.8 g/dl (12.0-16.0); LYMPH # 1.2 10*3/uL (1.3-4.4); LYMPH % 13.9 % (27.0-41.0); MEAN CELL VOLUME 90.8 fl (81.0-99.0); MEAN CORPUSCULAR HGB CONC 34.1 g/dl (33.0-37.0); MEAN PLATELET VOLUME 8.9 fl (9.6-12.3); MONO # 1.1 10*3/uL (0.1-1.0); MONO % 12.8 % (3.0-9.0); PLATELET COUNT AUTOMATED 376 10*3/uL (130-400); RED BLOOD COUNT 3.16 10*6/uL (4.10-5.10); RED CELL DISTRI WIDTH 12.4 % (0-14.5); WHITE BLOOD COUNT 8.3 10*3/uL (4.8-10.8)
[2017-10-15 06:32] LABS: CREATININE 1.58 mg/dL (0.55-1.02); POTASSIUM 3.8 mmol/L (3.5-5.1)
[2017-10-15 08:00] VITALS: BP 121/85
[2017-10-15 12:00] VITALS: BP 157/88
[2017-10-15 16:00] VITALS: BP 128/81
[2017-10-15 20:00] VITALS: BP 136/79
[2017-10-16] VITALS: BP 169/93
[2017-10-16 00:59] VITALS: BP 138/76
[2017-10-16 07:32] LABS: BASO % 0.1 % (0.0-1.0); EOS # 0.1 10*3/uL (0.0-0.4); HEMATOCRIT 28.4 % (37.0-47.0); HEMOGLOBIN 9.5 g/dl (12.0-16.0); LYMPH # 1.8 10*3/uL (1.3-4.4); LYMPH % 20.3 % (27.0-41.0); MEAN CORPUSCULAR HGB 31.5 pg (27.0-31.0); MEAN CORPUSCULAR HGB CONC 33.5 g/dl (33.0-37.0); MEAN PLATELET VOLUME 9.2 fl (9.6-12.3); MONO # 1.1 10*3/uL (0.1-1.0); MONO % 12.3 % (3.0-9.0); NEUT # 5.7 10*3/uL (2.3-7.9); NEUT % 66.1 % (47.0-73.0); PLATELET COUNT AUTOMATED 346 10*3/uL (130-400); RED BLOOD COUNT 3.02 10*6/uL (4.10-5.10); RED CELL DISTRI WIDTH 12.6 % (0-14.5); WHITE BLOOD COUNT 8.7 10*3/uL (4.8-10.8)
[2017-10-16 07:58] LABS: CHLORIDE 106 mmol/L (98-107); POTASSIUM 4.1 mmol/L (3.5-5.1); SODIUM 137 mmol/L (136-145)
[2017-10-16 08:00] VITALS: BP 158/83
[2017-10-16 08:01] LABS: BUN 19 mg/dl (7-24)
[2017-10-16 12:00] VITALS: BP 147/88
[2017-10-16 16:00] VITALS: BP 151/81
[2017-10-16 20:00] VITALS: BP 115/73
[2017-10-17] VITALS: BP 110/77
[2017-10-17 08:00] VITALS: BP 148/76
[2017-10-17 08:08] LABS: HIV 1+2 AB + HIV1 P24 AG Non Reactive (Non Reactive)
[2017-10-17 12:00] VITALS: BP 130/74
[2017-10-17 16:00] VITALS: BP 128/68
[2017-10-17 20:00] VITALS: BP 116/62
[2017-10-18] VITALS: BP 145/72
[2017-10-18 07:12] LABS: BASO % 0.2 % (0.0-1.0); EOS # 0.2 10*3/uL (0.0-0.4); EOS % 1.8 % (1.0-4.0); HEMATOCRIT 25.8 % (37.0-47.0); HEMOGLOBIN 8.6 g/dl (12.0-16.0); LYMPH # 2.9 10*3/uL (1.3-4.4); LYMPH % 35.6 % (27.0-41.0); MEAN CELL VOLUME 92.5 fl (81.0-99.0); MEAN CORPUSCULAR HGB 30.8 pg (27.0-31.0); MEAN CORPUSCULAR HGB CONC 33.3 g/dl (33.0-37.0); MONO # 0.7 10*3/uL (0.1-1.0); MONO % 8.3 % (3.0-9.0); NEUT # 4.4 10*3/uL (2.3-7.9); NEUT % 53.6 % (47.0-73.0); PLATELET COUNT AUTOMATED 270 10*3/uL (130-400); RED BLOOD COUNT 2.79 10*6/uL (4.10-5.10); RED CELL DISTRI WIDTH 12.3 % (0-14.5); WHITE BLOOD COUNT 8.2 10*3/uL (4.8-10.8)
[2017-10-18 07:45] LABS: ALBUMIN 2.6 gm/dl (3.1-4.5); ALKALINE PHOSPHATASE 156 U/L (45-117); CHLORIDE 98 mmol/L (98-107); POTASSIUM 3.4 mmol/L (3.5-5.1); SGOT/AST 19 IU/L (3-35); SGPT/ALT 16 U/L (12-78); SODIUM 131 mmol/L (136-145); TOTAL PROTEIN 5.7 gm/dL (6.4-8.2)
[2017-10-18 07:46] LABS: BUN 5 mg/dl (7-24)
[2017-10-18 08:00] VITALS: BP 150/62
[2017-10-18] MEDS ORDERED: METRONIDAZOLE500 M1 PO (08:24)
[2017-10-18] MEDS ORDERED: FLOMAX0.4 MG PO (08:24)
[2017-10-18] MEDS ORDERED: KLOR-CON M2020 ME1 PO (08:44)
[2017-10-18 12:00] VITALS: BP 114/78
== END 2017-10-18 18:45 | disposition other institution (70) | DRG 871 ==
LOC: ED 00:38 → 4E 04:55 → EDHOLD 04:55 → ICCU 05:03 → 4E 10-15 13:32
PROVIDERS: Emergency Medicine Emergency Medical Services; Internal Medicine
DX: A41.9 Sepsis, unspecified organism (principal); N17.0 Acute kidney failure with tubular necrosis; A07.2 Cryptosporidiosis; E87.8 Other disorders of electrolyte and fluid balance, not elsewhere classified; E87.1 Hypo-osmolality and hyponatremia; E44.1 Mild protein-calorie malnutrition; K56.0 Paralytic ileus; F33.9 Major depressive disorder, recurrent, unspecified; R65.20 Severe sepsis without septic shock; E87.6 Hypokalemia; R62.7 Adult failure to thrive; T24.012A Burn of unspecified degree of left thigh, initial encounter; M48.00 Spinal stenosis, site unspecified; G31.2 Degeneration of nervous system due to alcohol; F10.20 Alcohol dependence, uncomplicated; I10 Essential (primary) hypertension; R54 Age-related physical debility; G89.29 Other chronic pain; M54.9 Dorsalgia, unspecified; F17.210 Nicotine dependence, cigarettes, uncomplicated; R33.9 Retention of urine, unspecified; R29.6 Repeated falls; J44.9 Chronic obstructive pulmonary disease, unspecified; E78.5 Hyperlipidemia, unspecified; E03.9 Hypothyroidism, unspecified; M81.0 Age-related osteoporosis without current pathological fracture; E66.9 Obesity, unspecified; K29.20 Alcoholic gastritis without bleeding; M54.12 Radiculopathy, cervical region; F12.90 Cannabis use, unspecified, uncomplicated; R73.9 Hyperglycemia, unspecified; K21.9 Gastro-esophageal reflux disease without esophagitis; X08.8XXA Exposure to other specified smoke, fire and flames, initial encounter; Z86.73 Personal history of transient ischemic attack (TIA), and cerebral infarction without residual deficits; Z88.6 Allergy status to analgesic agent; Z88.8 Allergy status to other drugs, medicaments and biological substances; Z79.899 Other long term (current) drug therapy; Z79.82 Long term (current) use of aspirin; Z87.440 Personal history of urinary (tract) infections; Z82.49 Family history of ischemic heart disease and other diseases of the circulatory system; Z83.6 Family history of other diseases of the respiratory system; Z82.3 Family history of stroke; Y93.89 Activity, other specified; Y92.89 Other specified places as the place of occurrence of the external cause; Y99.8 Other external cause status; Z86.11 Personal history of tuberculosis; Z90.49 Acquired absence of other specified parts of digestive tract; Z68.20 Body mass index [BMI] 20.0-20.9, adult

== ENCOUNTER → 2018-01-12 | Outpatient (CLI) | payer MEDICARE, MEDICAID ==
[~2018-01-12] MED LIST changes: +FLOMAX0.4 MG PO; +KLOR-CON M2020 ME1 PO; +METRONIDAZOLE500 M1 PO
[2018-01-12 16:18] LABS: BASO % 0.5 % (0.0-1.0); EOS # 0.4 10*3/uL (0.0-0.4); EOS % 5.1 % (1.0-4.0); HEMATOCRIT 35.7 % (37.0-47.0); HEMOGLOBIN 11.4 g/dl (12.0-16.0); LYMPH # 3.7 10*3/uL (1.3-4.4); LYMPH % 47.6 % (27.0-41.0); MEAN CELL VOLUME 89.5 fl (81.0-99.0); MEAN CORPUSCULAR HGB 28.6 pg (27.0-31.0); MEAN CORPUSCULAR HGB CONC 31.9 g/dl (33.0-37.0); MEAN PLATELET VOLUME 9.5 fl (9.6-12.3); MONO # 0.4 10*3/uL (0.1-1.0); MONO % 4.9 % (3.0-9.0); NEUT # 3.2 10*3/uL (2.3-7.9); NEUT % 41.6 % (47.0-73.0); PLATELET COUNT AUTOMATED 332 10*3/uL (130-400); RED BLOOD COUNT 3.99 10*6/uL (4.10-5.10); RED CELL DISTRI WIDTH 13.9 % (0-14.5); WHITE BLOOD COUNT 7.7 10*3/uL (4.8-10.8)
[2018-01-12 16:27] LABS: ACT PARTIAL THROMBO TIME 24.1 SECONDS (20.8-31.5)
[2018-01-12 16:34] LABS: ALBUMIN 2.9 gm/dl (3.1-4.5); ALKALINE PHOSPHATASE 93 U/L (45-117); BUN 5 mg/dl (7-24); CHLORIDE 103 mmol/L (98-107); CREATININE 0.65 mg/dL (0.55-1.02); POTASSIUM 2.8 mmol/L (3.5-5.1); SGOT/AST 19 IU/L (3-35); SGPT/ALT 16 U/L (12-78); SODIUM 141 mmol/L (136-145); TOTAL PROTEIN 7.6 gm/dL (6.4-8.2)
== END | disposition home or self-care (01) ==
LOC: LAB 15:50
PROVIDERS: Nurse Practitioner Family
DX: Z01.818 Encounter for other preprocedural examination (principal); J43.9 Emphysema, unspecified; I10 Essential (primary) hypertension; R31.9 Hematuria, unspecified; Z87.891 Personal history of nicotine dependence

== ENCOUNTER → 2018-01-25 | Outpatient (CLI) | payer MEDICARE, MEDICAID ==
[2018-01-25 15:45] LABS: HEMATOCRIT 36.3 % (37.0-47.0); HEMOGLOBIN 11.2 g/dl (12.0-16.0); MEAN CELL VOLUME 90.1 fl (81.0-99.0); MEAN CORPUSCULAR HGB 27.8 pg (27.0-31.0); MEAN CORPUSCULAR HGB CONC 30.9 g/dl (33.0-37.0); RED BLOOD COUNT 4.03 10*6/uL (4.10-5.10)
[2018-01-25 16:10] LABS: ALBUMIN 3.5 gm/dl (3.1-4.5); ALKALINE PHOSPHATASE 92 U/L (45-117); BUN 8 mg/dl (7-24); CHLORIDE 100 mmol/L (98-107); CHOLESTEROL 230 mg/dL (<200); CREATININE 0.95 mg/dL (0.55-1.02); FREE T4 0.94 ng/dl (0.76-1.46); HDL CHOLESTEROL 54 mg/dl (40-60); LDL CHOLESTEROL 152 mg/dL (9-159); POTASSIUM 2.5 mmol/L (3.5-5.1); SGOT/AST 17 IU/L (3-35); SGPT/ALT 15 U/L (12-78); SODIUM 141 mmol/L (136-145); TOTAL PROTEIN 8.1 gm/dL (6.4-8.2); TRIGLYCERIDES 118 mg/dl (<150); VLDL CHOLESTEROL 24 mg/dL (6-40)
[2018-01-25 16:31] LABS: VITAMIN D, 25-HYDROXY 45.3 ng/mL (30-100)
[2018-01-26 07:05] LABS: FREE T3 010389 3.1 pg/mL (2.0-4.4)
== END | disposition home or self-care (01) ==
LOC: LAB 15:07
PROVIDERS: Family Medicine
DX: I25.10 Atherosclerotic heart disease of native coronary artery without angina pectoris (principal); I63.9 Cerebral infarction, unspecified; E55.9 Vitamin D deficiency, unspecified; R53.83 Other fatigue; E78.00 Pure hypercholesterolemia, unspecified; E03.9 Hypothyroidism, unspecified; I10 Essential (primary) hypertension; E87.6 Hypokalemia; R79.89 Other specified abnormal findings of blood chemistry

== ENCOUNTER → 2018-07-16 | Outpatient (CLI) | payer OTHER ==
[2018-07-16 13:53] LABS: ALBUMIN 3.7 gm/dl (3.1-4.5); BUN 16 mg/dl (7-24); CHLORIDE 104 mmol/L (98-107); CREATININE 0.87 mg/dL (0.55-1.02); PHOSPHOROUS 3.3 mg/dL (2.5-4.9); POTASSIUM 4.1 mmol/L (3.5-5.1); SODIUM 138 mmol/L (136-145)
== END ==
LOC: LAB 12:49
PROVIDERS: Internal Medicine Nephrology
DX: E87.6 Hypokalemia (principal)

== ENCOUNTER → 2018-09-03 | Outpatient (CLI) | payer OTHER ==
[~2018-09-03] MED LIST changes: -K-TAB20 MEQ PO; +KLORVESS,K40 MEQ/30 PO; -LEVOTHYROXIN0.075 M1 PO; -PROZAC10 MG PO; +PROZAC20 MG PO; +TIROSINT88 MCG PO; +TYLENOL WITH C1 EACH PO
== END | disposition home or self-care (01) ==
DX: M19.112 Post-traumatic osteoarthritis, left shoulder (principal); M21.822 Other specified acquired deformities of left upper arm; J43.9 Emphysema, unspecified

== ENCOUNTER → 2018-10-02 | Outpatient (CLI) | payer OTHER, MEDICAID ==
[2018-10-02 11:13] LABS: HEMATOCRIT 35.6 % (37.0-47.0); HEMOGLOBIN 11.2 g/dl (12.0-16.0); MEAN CELL VOLUME 92.2 fl (81.0-99.0); MEAN CORPUSCULAR HGB CONC 31.5 g/dl (33.0-37.0); MEAN PLATELET VOLUME 9.3 fl (9.6-12.3); RED BLOOD COUNT 3.86 10*6/uL (4.10-5.10); WHITE BLOOD COUNT 7.8 10*3/uL (4.8-10.8)
[2018-10-02 11:32] LABS: CHLORIDE 111 mmol/L (98-107); POTASSIUM 4.1 mmol/L (3.5-5.1); SODIUM 141 mmol/L (136-145)
[2018-10-02 11:48] LABS: ALBUMIN 3.7 gm/dl (3.1-4.5); ALKALINE PHOSPHATASE 190 U/L (45-117); BUN 12 mg/dl (7-24); CHOLESTEROL 156 mg/dL (<200); CREATININE 0.85 mg/dL (0.55-1.02); FREE T4 1.06 ng/dl (0.76-1.46); HDL CHOLESTEROL 51 mg/dl (40-60); LDL CHOLESTEROL 81 mg/dL (9-159); SGOT/AST 13 IU/L (3-35); SGPT/ALT 16 U/L (12-78); TRIGLYCERIDES 118 mg/dl (<150); VLDL CHOLESTEROL 24 mg/dL (6-40)
== END | disposition home or self-care (01) ==
LOC: LAB 10:34
PROVIDERS: Family Medicine
DX: I10 Essential (primary) hypertension (principal); E55.9 Vitamin D deficiency, unspecified; E78.00 Pure hypercholesterolemia, unspecified; M19.90 Unspecified osteoarthritis, unspecified site

== ENCOUNTER → 2018-11-02 | Outpatient (CLI) | payer OTHER, MEDICAID ==
--- NOTE | ~2018-11-02 | EKG ---
[place], [place] ELECTROCARDIOGRAM REPORT NAME: AMELIA OWUSU UNIT #: [id number] ROOM: DOCTOR: EPIPHANY DRAFT REPORT BIRTHDATE: [birth year] [facility] Test Date: 2018-11-02 Test Time: 16:13:38 Pat Name: AMELIA OWUSU Department: Room: Gender: F College Tutor: Loni Gomez : 1965 Requested By: MICKY FIGUEROA Order Number: [id number] Reading MD: Micky Figueroa MD Measurements Intervals [place] Rate: 66 P: 58 WY: 234 QRS: 55 QRSD: 80 T: 39 QT: 374 QTc: 392 Interpretive Statements Sinus rhythm Prolonged WY interval No previous ECG available for comparison Electronically Signed On 11-04-2018 15:01:22 PDT by Micky Figueroa MD CM:EKGRPT:ELECTROCARDIOGRAM REPORT [id number] [id number] MICKY FIGUEROA MD [facility] EPIPHANY DRAFT REPORT MICKY FIGUEROA MD [facility]
== END | disposition home or self-care (01) ==
LOC: CARD 15:58
DX: Z01.810 Encounter for preprocedural cardiovascular examination (principal)

== ENCOUNTER → 2019-01-25 | Outpatient (CLI) | payer OTHER, MEDICAID ==
[2019-01-25 15:05] LABS: HEMATOCRIT 33.6 % (37.0-47.0); HEMOGLOBIN 10.8 g/dl (12.0-16.0); MEAN CELL VOLUME 90.3 fl (81.0-99.0); MEAN CORPUSCULAR HGB CONC 32.1 g/dl (33.0-37.0); MEAN PLATELET VOLUME 9.3 fl (9.6-12.3); RED BLOOD COUNT 3.72 10*6/uL (4.10-5.10); RED CELL DISTRI WIDTH 13.7 % (0-14.5)
[2019-01-25 15:32] LABS: ALBUMIN 3.4 gm/dl (3.1-4.5); ALKALINE PHOSPHATASE 110 U/L (45-117); BUN 10 mg/dl (7-24); CHLORIDE 104 mmol/L (98-107); CREATININE 0.85 mg/dL (0.55-1.02); POTASSIUM 3.2 mmol/L (3.5-5.1); SGOT/AST 10 IU/L (3-35); SGPT/ALT 18 U/L (12-78); SODIUM 138 mmol/L (136-145)
[2019-01-26 09:07] LABS: RHEUMATOID ARTHRITIS FACTOR 11.7 IU/mL (0.0-13.9)
== END | disposition home or self-care (01) ==
LOC: LAB 14:38
PROVIDERS: Family Medicine
DX: E74.00 Glycogen storage disease, unspecified (principal); F41.1 Generalized anxiety disorder; M25.50 Pain in unspecified joint; R10.9 Unspecified abdominal pain; R53.83 Other fatigue

== ENCOUNTER 2019-01-26 16:16 | Inpatient (IN) | payer OTHER, MEDICAID ==
[~2019-01-26] VITALS: Ht 160 cm; Wt 55.1 kg
--- NOTE | ~2019-01-26 | WRIGHTHP ---
[place], [place] PATIENT HISTORY AND PHYSICAL EXAM NAME: AMELIA OWUSU [facility] #: [id number] UNIT #: [id number] ROOM: 424 DOCTOR: HARVEY VASQUEZ MD BIRTHDATE: [birth year] DOS: 01/26/2019 HISTORY OF PRESENT ILLNESS: This patient is 53 years old, known to me from previous admissions. She is a patient of Dr. Peter who comes in with complaints of severe abdominal pain, which started a couple of days ago. She has not had any nausea and emesis. Denies having any chest pains or palpitations. She arrived at the Emergency Room. A CT scan was done in the ER, which showed acute appendicitis and the patient is admitted. This morning, she does complain of minimal abdominal discomfort, but answers questions appropriately. She is scheduled for a left shoulder repair in February at [facility]. PAST MEDICAL HISTORY: Significant for: 1. Last hospitalization a year ago with cryptosporidium diarrhea and acute kidney injury. 2. Benign hypertension. 3. Chronic back pain from a sacral fracture. 4. History of alcoholism; chronic left shoulder pain with capsulitis and frozen shoulder, awaiting shoulder repair. MEDICATIONS: Tylenol with Codeine 1 tablet twice a day, Coreg 25 b.i.d., Prozac 10 daily, levothyroxine 88 mcg daily, potassium 20 daily. SOCIAL HISTORY: History of does not smoke, does not use any alcohol right now. She was alcoholic for many years. PHYSICAL EXAMINATION: GENERAL: She is frail looking. VITAL SIGNS: Graphic trend shows a pressure of 136/81, pulse of 87, respirations 18, temperature 98.1. LUNGS: Diminished breath sounds, clear. HEART: Regular. ABDOMEN: Obese, distended, tense with rigidity. Bowel sounds hypoactive. EXTREMITIES: Without any edema. LABORATORY DATA: WBC count is elevated at 14.2, hemoglobin 10.8, hematocrit 33.6. Comprehensive glucose 118, BUN 10, creatinine 0.85, sodium 138, potassium 3.2, chloride 104. WBC count on the 01/26 was 17.2. Lactic acid normal at 1.6. Potassium on 01/26 is down again further to 3.0. Chest x-ray shows COPD with extensive bullous lesions. CT of the abdomen shows acute appendicitis with ileus. ASSESSMENT AND PLAN: 1. The patient presents with acute abdominal pain, diagnosed with acute appendicitis. Consultation with Dr. Costello and appendectomy to be performed soon. 2. 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 The patient is a poor candidate for general anesthesia because of her increased risk of pneumothorax. She carries a moderate to high risk. If possible, the patient's surgery should be done under spinal. 3. Hypothyroidism. The patient's medications are on hold because of n.p.o. [place], [place] PATIENT HISTORY AND PHYSICAL EXAM [facility]: [id number] UNIT #: [id number] ROOM: [facility] DOCTOR: HARVEY VASQUZE MD BIRTHDATE: [birth year] status. 4. Benign hypertension, controlled. Pressure is actually on the low side. We will continue IV fluids and holding off on the pressure medications right now. 5. Hypokalemia. Supplementation will be ordered. HARVEY VASQUEZ MD CM:HISPHYS:PATIENT HISTORY AND PHYSICAL EXAMINATION [id number] HARVEY VASQUEZ MD 01/27/19 0624 interface
--- NOTE | ~2019-01-26 | EKG ---
[place], [place] ELECTROCARDIOGRAM REPORT NAME: AMELIA OWUSU UNIT #: [id number] ROOM: 424 DOCTOR: EDDIE DRAFT REPORT BIRTHDATE: [birth year] [facility] Test Date: 2019-01-26 Test Time: 17:20:09 Pat Name: AMELIA OWUSU Department: Room: 424 Gender: F Cork Molder: ELAINE : 1965 Requested By: MAURICIO SALAZAR PA-C Order Number: [id number] Reading MD: Hina Morrison MD Measurements Intervals [place] Rate: 89 P: 47 [place]: 194 QRS: 41 QRSD: 84 T: 60 QT: 401 QTc: 488 Interpretive Statements Sinus rhythm Borderline prolonged QT interval Compared to ECG 11/02/2018 16:13:38 First degree AV block no longer present Electronically Signed On 02-01-2019 9:05:50 PDT by Hina Morrison MD CM:EKGRPT:ELECTROCARDIOGRAM REPORT 1720 0905 MAURICIO SALAZAR PA-C EPIPHANY DRAFT REPORT MAURICIO SALAZAR PA-C
[~2019-01-26 16:16] MED LIST changes: -TYLENOL WITH C1 EACH PO
[2019-01-26 16:17] VITALS: BP 94/68
[2019-01-26 16:59] LABS: BASO % 0.2 % (0.0-1.0); EOS % 0.1 % (1.0-4.0); HEMATOCRIT 32.9 % (37.0-47.0); HEMOGLOBIN 10.8 g/dl (12.0-16.0); LYMPH # 1.6 10*3/uL (1.3-4.4); LYMPH % 9.2 % (27.0-41.0); MEAN CELL VOLUME 89.6 fl (81.0-99.0); MEAN CORPUSCULAR HGB 29.4 pg (27.0-31.0); MEAN CORPUSCULAR HGB CONC 32.8 g/dl (33.0-37.0); MEAN PLATELET VOLUME 9.5 fl (9.6-12.3); MONO # 1.2 10*3/uL (0.1-1.0); MONO % 6.7 % (3.0-9.0); NEUT # 14.4 10*3/uL (2.3-7.9); NEUT % 83.5 % (47.0-73.0); PLATELET COUNT AUTOMATED 264 10*3/uL (130-400); RED BLOOD COUNT 3.67 10*6/uL (4.10-5.10); RED CELL DISTRI WIDTH 13.9 % (0-14.5); WHITE BLOOD COUNT 17.2 10*3/uL (4.8-10.8)
[2019-01-26 17:13] LABS: ACT PARTIAL THROMBO TIME 29.4 SECONDS (20.0-32.1); INTERNATIONAL NORM RATIO 1.1 (2.0-3.5)
[2019-01-26 17:18] LABS: ALBUMIN 3.3 gm/dl (3.1-4.5); CREATININE 1.93 mg/dL (0.55-1.02); TOTAL PROTEIN 8.2 gm/dL (6.4-8.2)
[2019-01-26 17:30] VITALS: BP 84/60
[2019-01-26 18:39] LABS: BILIRUBIN NEGATIVE (NEGATIVE); BLOOD TRACE-INTACT (NEGATIVE); CLARITY SL CLOUDY (CLEAR); COLOR YELLOW (YELLOW); GLUCOSE NEGATIVE (NEGATIVE); KETONE NEGATIVE (NEGATIVE); LEUKO ESTERASE NEGATIVE (NEGATIVE); NITRITE NEGATIVE (NEGATIVE); PH 5.5 (5.0-9.0)
[2019-01-26 18:50] LABS: MUCOUS 1+
[2019-01-26 19:00] VITALS: BP 126/70
[2019-01-26 21:00] VITALS: BP 124/67
--- NOTE | 2019-01-26 21:00 | NUR ---
A 53, admitted to , under the services of HARVEY Lopez MD with a diagnosis of ACUTE APPENDICITIS, SEPSIS, FRANCESCO, ILEUS. Chief complaint is ABD PAIN. Patient arrived via ambulance from ER. Monitor applied. Initial assessment completed. Vital signs taken and recorded. HARVEY LOPEZ MD notified of admission to the unit. Orders received. See assessment for past medical history, medications and allergies. Patient and/or family oriented to unit. [facility] visitation policy reviewed. Clothing/patient valuable form completed. VIVIANA KUMAR
[2019-01-26] MEDS ORDERED: TYLENOL WITH C1 EACH PO (22:26)
--- NOTE | 2019-01-26 22:30 | NUR ---
DR. VASQUEZ NOTIFIED OF PT ADMISSION. Coleen CARLTON.
--- NOTE | 2019-01-26 23:09 | NUR ---
PRN ZOFRAN GIVEN AT THIS TIME FOR C/O NAUSEA, CALL LIGHT IS WITHIN REACH, WILL MONITOR EFFECT.
[2019-01-27] VITALS: BP 136/81
--- NOTE | 2019-01-27 00:46 | NUR ---
PT MEDICATED W/DILAUDID FOR C/O MID/LLQ ABD PAIN 12/05. DESCRIBES ACHY. PT DENIES ANY FURTHER NAUSEA. CALL LIGHT IN REACH.
[2019-01-27 03:04] VITALS: BP 124/67
--- NOTE | 2019-01-27 05:10 | NUR ---
DR. OSULLIVAN NOTIFIED OF NEW CONSULT AND MADE AWARE OF LARGE BULLA IN RLL.
--- NOTE | 2019-01-27 05:11 | NUR ---
DR. OSULLIVAN PHONED AND ORDERED STAT CT OF CHEST NO CONTRAST. AND CALL W/RESULTS.
--- NOTE | 2019-01-27 05:14 | NUR ---
MESSAGE LEFT W/CT RE STAT CTA.
--- NOTE | 2019-01-27 05:53 | NUR ---
DR. OSULLIVAN PHONED AND N.O. RCVD FOR STAT CBC/CMP AND HE IS GOING TO SPEAK W/ANAESTHESIOLOGY RE SAFELY SEDATING PT AND WILL CALL THIS NURSE W/FURTHER INSTRUCTIONS.
--- NOTE | 2019-01-27 06:05 | NUR ---
DR. OSULLIVAN PHONED AND NOTIFIED THIS NURSE THAT PT NEEDS TRANSFERRED AND SURGERY IS NOT GOING TO BE PERFORMED HERE. DR. VASQUEZ NOTIFIED AND IS REQUESTING DR. OSULLIVAN TO TRANSFER PT. T.O. RCVD FOR DILAUDID 1MG IVP X1 NOW FROM DR. VASQUEZ.
[2019-01-27 06:07] LABS: BASO % 0.1 % (0.0-1.0); HEMATOCRIT 27.9 % (37.0-47.0); HEMOGLOBIN 9.1 g/dl (12.0-16.0); LYMPH % 7.9 % (27.0-41.0); MEAN CELL VOLUME 90.6 fl (81.0-99.0); MEAN CORPUSCULAR HGB 29.5 pg (27.0-31.0); MEAN CORPUSCULAR HGB CONC 32.6 g/dl (33.0-37.0); MEAN PLATELET VOLUME 9.1 fl (9.6-12.3); MONO # 0.8 10*3/uL (0.1-1.0); MONO % 6.2 % (3.0-9.0); NEUT # 10.6 10*3/uL (2.3-7.9); NEUT % 85.6 % (47.0-73.0); PLATELET COUNT AUTOMATED 198 10*3/uL (130-400); RED BLOOD COUNT 3.08 10*6/uL (4.10-5.10); RED CELL DISTRI WIDTH 14.1 % (0-14.5); WHITE BLOOD COUNT 12.4 10*3/uL (4.8-10.8)
--- NOTE | 2019-01-27 06:10 | NUR ---
DR. OSULLIVAN PHONED RE WHERE TO TRANSFER PT. OK TO TRANSFER TO [facility] OR [facility]. PT NOTIFIED AND REQUESTING [facility].
[2019-01-27 06:24] LABS: ALBUMIN 2.5 gm/dl (3.1-4.5); CREATININE 1.47 mg/dL (0.55-1.02); TOTAL PROTEIN 6.6 gm/dL (6.4-8.2)
--- NOTE | 2019-01-27 07:51 | NUR ---
NURSE TO NURSE REPORT GIVEN TO LETY AT [facility] W/DR. BALL THE ACCEPTING
--- NOTE | 2019-01-27 08:53 | NUR ---
Discharge instructions reviewed with patient. HEART MONITOR DISCONTINUED. PT LEFT FLOOR ACCOMPANIED BY AMBULANCE.
--- NOTE | 2019-01-28 06:55 | NUR ---
PHYSICAL THERAPY Nursing screen received. PAtient discharged. Thank you. Amber Chiu,PT
--- NOTE | 2019-01-28 11:45 | NUR ---
Nursing screen received. Patient discharged. Thank you. Katie Vaughn OTR/l
== END 2019-01-27 08:53 | disposition short-term general hospital (02) | DRG 372 ==
LOC: ED 16:16 → EDHOLD 19:42 → 4E 20:13
PROVIDERS: Physician Assistant; Surgery; ADMIT Internal Medicine
DX: K35.890 Other acute appendicitis without perforation or gangrene (principal); N17.9 Acute kidney failure, unspecified; K56.7 Ileus, unspecified; E87.1 Hypo-osmolality and hyponatremia; G89.29 Other chronic pain; M54.9 Dorsalgia, unspecified; M25.512 Pain in left shoulder; Z66 Do not resuscitate; Z51.5 Encounter for palliative care; J43.9 Emphysema, unspecified; E03.9 Hypothyroidism, unspecified; I10 Essential (primary) hypertension; E87.6 Hypokalemia; Z98.891 History of uterine scar from previous surgery; Z87.891 Personal history of nicotine dependence; Z82.5 Family history of asthma and other chronic lower respiratory diseases; Z82.49 Family history of ischemic heart disease and other diseases of the circulatory system; Z82.3 Family history of stroke; Z88.1 Allergy status to other antibiotic agents; Z88.6 Allergy status to analgesic agent; Z79.899 Other long term (current) drug therapy; Z79.82 Long term (current) use of aspirin; Z90.49 Acquired absence of other specified parts of digestive tract; Z86.73 Personal history of transient ischemic attack (TIA), and cerebral infarction without residual deficits; N18.3 Chronic kidney disease, stage 3 (moderate)

== ENCOUNTER → 2019-07-17 | Outpatient (CLI) | payer OTHER ==
[~2019-07-17] MED LIST changes: +TYLENOL WITH C1 EACH PO
== END | disposition home or self-care (01) ==
LOC: CT 10:00
DX: J43.9 Emphysema, unspecified (principal); R91.8 Other nonspecific abnormal finding of lung field; R06.02 Shortness of breath; I70.0 Atherosclerosis of aorta

== ENCOUNTER → 2019-08-07 | Outpatient (CLI) | payer OTHER | END | disposition home or self-care (01) | LOC: RAD 12:36 | DX: J43.8 Other emphysema (principal) ==

== ENCOUNTER 2019-08-26 17:33 | Emergency (ER) | payer OTHER ==
[~2019-08-26] VITALS: Ht 160 cm; Wt 54.4 kg
[2019-08-26 18:19] LABS: BASO % 0.4 % (0.0-1.0); EOS # 0.4 10*3/uL (0.0-0.4); HEMATOCRIT 32.5 % (37.0-47.0); HEMOGLOBIN 10.2 g/dl (12.0-16.0); LYMPH # 2.9 10*3/uL (1.3-4.4); MEAN CELL VOLUME 92.6 fl (81.0-99.0); MEAN CORPUSCULAR HGB 29.1 pg (27.0-31.0); MEAN CORPUSCULAR HGB CONC 31.4 g/dl (33.0-37.0); MEAN PLATELET VOLUME 9.6 fl (9.6-12.3); MONO # 0.5 10*3/uL (0.1-1.0); MONO % 5.7 % (3.0-9.0); NEUT # 5.7 10*3/uL (2.3-7.9); NEUT % 59.7 % (47.0-73.0); PLATELET COUNT AUTOMATED 232 10*3/uL (130-400); RED BLOOD COUNT 3.51 10*6/uL (4.10-5.10); RED CELL DISTRI WIDTH 15.8 % (0-14.5); WHITE BLOOD COUNT 9.5 10*3/uL (4.8-10.8)
[2019-08-26 18:34] LABS: ALBUMIN 3.1 gm/dl (3.1-4.5); ALKALINE PHOSPHATASE 71 U/L (45-117); BUN 15 mg/dl (7-24); CHLORIDE 108 mmol/L (98-107); CREATININE 0.96 mg/dL (0.55-1.02); LIPASE 143 U/L (73-393); POTASSIUM 3.7 mmol/L (3.5-5.1); SGOT/AST 14 IU/L (3-35); SGPT/ALT 19 U/L (12-78); SODIUM 139 mmol/L (136-145); TOTAL PROTEIN 7.3 gm/dL (6.4-8.2)
[2019-08-26 18:52] LABS: BILIRUBIN NEGATIVE (NEGATIVE); BLOOD TRACE-INTACT (NEGATIVE); CLARITY CLEAR (CLEAR); COLOR YELLOW (YELLOW); GLUCOSE NEGATIVE (NEGATIVE); KETONE NEGATIVE (NEGATIVE); LEUKO ESTERASE 2+ (NEGATIVE); NITRITE NEGATIVE (NEGATIVE); SPECIFIC GRAVITY 1.015 (1.005-1.030); UROBILINOGEN 0.2 E.U./dl (0.2-1.0)
[2019-08-26 19:04] LABS: EPITHELIAL CELLS 51-100
[2019-08-26 19:05] LABS: BACTERIA 1+; RBC 0-2 rbc/hpf (0-2); WBC 51-100 wbc/hpf (0-5)
[2019-08-26] MEDS ORDERED: CIPRO500 MG PO (19:17)
== END 2019-08-26 21:31 | disposition home or self-care (01) ==
LOC: ED 17:33
PROVIDERS: Nurse Practitioner Family
DX: N39.0 Urinary tract infection, site not specified (principal); K52.9 Noninfective gastroenteritis and colitis, unspecified; K59.00 Constipation, unspecified; J44.9 Chronic obstructive pulmonary disease, unspecified; E78.5 Hyperlipidemia, unspecified; I10 Essential (primary) hypertension; E03.9 Hypothyroidism, unspecified; Z88.1 Allergy status to other antibiotic agents; Z88.8 Allergy status to other drugs, medicaments and biological substances; Z88.6 Allergy status to analgesic agent; Z79.899 Other long term (current) drug therapy; Z90.49 Acquired absence of other specified parts of digestive tract; Z87.891 Personal history of nicotine dependence

== ENCOUNTER 2019-09-12 19:47 | Emergency (ER) | payer OTHER ==
[~2019-09-12] VITALS: Ht 160 cm; Wt 55.8 kg
[~2019-09-12 19:47] MED LIST changes: +CIPRO500 MG PO
[2019-09-12 20:13] LABS: BASO % 0.4 % (0.0-1.0); EOS # 0.2 10*3/uL (0.0-0.4); EOS % 1.8 % (1.0-4.0); HEMATOCRIT 35.6 % (37.0-47.0); HEMOGLOBIN 10.9 g/dl (12.0-16.0); LYMPH # 2.6 10*3/uL (1.3-4.4); LYMPH % 23.2 % (27.0-41.0); MEAN CORPUSCULAR HGB 28.5 pg (27.0-31.0); MEAN CORPUSCULAR HGB CONC 30.6 g/dl (33.0-37.0); MONO # 0.7 10*3/uL (0.1-1.0); MONO % 6.7 % (3.0-9.0); NEUT # 7.5 10*3/uL (2.3-7.9); NEUT % 67.5 % (47.0-73.0); PLATELET COUNT AUTOMATED 301 10*3/uL (130-400); RED BLOOD COUNT 3.83 10*6/uL (4.10-5.10); RED CELL DISTRI WIDTH 15.2 % (0-14.5); WHITE BLOOD COUNT 11.1 10*3/uL (4.8-10.8)
[2019-09-12 20:13] LABS: BILIRUBIN NEGATIVE (NEGATIVE); BLOOD NEGATIVE (NEGATIVE); CLARITY CLEAR (CLEAR); COLOR YELLOW (YELLOW); GLUCOSE NEGATIVE (NEGATIVE); KETONE NEGATIVE (NEGATIVE); LEUKO ESTERASE NEGATIVE (NEGATIVE); NITRITE NEGATIVE (NEGATIVE); PH 5.5 (5.0-9.0); SPECIFIC GRAVITY 1.025 (1.005-1.030); UROBILINOGEN 0.2 E.U./dl (0.2-1.0)
[2019-09-12 20:20] LABS: WBC 0-2 wbc/hpf (0-5)
[2019-09-12 20:28] LABS: ALBUMIN 3.4 gm/dl (3.1-4.5); ALKALINE PHOSPHATASE 99 U/L (45-117); BUN 16 mg/dl (7-24); CHLORIDE 107 mmol/L (98-107); CREATININE 0.87 mg/dL (0.55-1.02); POTASSIUM 4.1 mmol/L (3.5-5.1); SGOT/AST 20 IU/L (3-35); SGPT/ALT 30 U/L (12-78); SODIUM 139 mmol/L (136-145); TOTAL PROTEIN 8.1 gm/dL (6.4-8.2)
[2019-09-12 20:47] LABS: ACT PARTIAL THROMBO TIME 27.3 SECONDS (20.0-32.1); INTERNATIONAL NORM RATIO 0.9 (2.0-3.5)
[2019-09-12] MEDS ORDERED: NORCO 5-325 TA1 EACH PO (23:11)
[2019-09-12] MEDS ORDERED: TRELEGY ELLIPT1 EACH INH (23:12)
== END 2019-09-13 01:24 | disposition short-term general hospital (02) ==
LOC: ED 19:47
PROVIDERS: Physician Assistant
DX: S72.142A Displaced intertrochanteric fracture of left femur, initial encounter for closed fracture (principal); I10 Essential (primary) hypertension; J44.9 Chronic obstructive pulmonary disease, unspecified; E07.9 Disorder of thyroid, unspecified; E03.9 Hypothyroidism, unspecified; Z88.1 Allergy status to other antibiotic agents; Z88.8 Allergy status to other drugs, medicaments and biological substances; Z88.6 Allergy status to analgesic agent; Z79.899 Other long term (current) drug therapy; Z87.891 Personal history of nicotine dependence; Z86.73 Personal history of transient ischemic attack (TIA), and cerebral infarction without residual deficits; W19.XXXA Unspecified fall, initial encounter; Y93.89 Activity, other specified; Y92.098 Other place in other non-institutional residence as the place of occurrence of the external cause; Y99.8 Other external cause status

== ENCOUNTER → 2020-07-07 | Outpatient (CLI) | payer OTHER ==
[~2020-07-07] MED LIST changes: +TRELEGY ELLIPT1 EACH INH
== END | disposition home or self-care (01) ==
LOC: CARD 07-06 11:30
PROVIDERS: ATTEND Internal Medicine Cardiovascular Disease
DX: Z01.818 Encounter for other preprocedural examination (principal); R06.02 Shortness of breath; I10 Essential (primary) hypertension

== ENCOUNTER → 2021-01-11 | Outpatient (CLI) | payer OTHER ==
[2021-01-11 16:41] LABS: MEAN CELL VOLUME 89.4 fl (81.0-99.0); MEAN CORPUSCULAR HGB 27.3 pg (27.0-31.0); MEAN CORPUSCULAR HGB CONC 30.5 g/dl (33.0-37.0); MEAN PLATELET VOLUME 9.3 fl (9.6-12.3); RED BLOOD COUNT 4.14 10*6/uL (4.10-5.10); RED CELL DISTRI WIDTH 15.6 % (0-14.5); WHITE BLOOD COUNT 14.8 10*3/uL (4.8-10.8)
[2021-01-11 16:56] LABS: ALBUMIN 3.4 gm/dl (3.1-4.5); CREATININE 1.65 mg/dL (0.55-1.02); POTASSIUM 3.1 mmol/L (3.5-5.1); TOTAL PROTEIN 9.3 gm/dL (6.4-8.2)
[2021-01-11 16:57] LABS: FREE T4 1.65 ng/dl (0.76-1.46)
[2021-01-11 17:02] LABS: THYROID STIM HORMONE (HS) 0.184 uIU/ml (0.358-4.75)
== END | disposition home or self-care (01) ==
LOC: LAB 15:29
PROVIDERS: ATTEND Family Medicine
DX: I10 Essential (primary) hypertension (principal); E78.00 Pure hypercholesterolemia, unspecified; E03.9 Hypothyroidism, unspecified; R60.0 Localized edema; F41.1 Generalized anxiety disorder; E74.00 Glycogen storage disease, unspecified

== ENCOUNTER 2021-04-20 19:07 | Inpatient (IN) | payer OTHER, MEDICAID ==
[~2021-04-20] VITALS: Ht 160 cm; Wt 75.0 kg
[2021-04-20] VITALS (7 sets, daily range): BP systolic 106–155; BP diastolic 69–85
[2021-04-20 19:25] LABS: BASO % 0.1 % (0.0-1.0); EOS % 0.3 % (1.0-4.0); HEMATOCRIT 31.8 % (37.0-47.0); LYMPH # 2.5 10*3/uL (1.3-4.4); LYMPH % 20.8 % (27.0-41.0); MEAN CELL VOLUME 84.6 fl (81.0-99.0); MEAN CORPUSCULAR HGB 26.6 pg (27.0-31.0); MEAN CORPUSCULAR HGB CONC 31.4 g/dl (33.0-37.0); MEAN PLATELET VOLUME 10.7 fl (9.6-12.3); MONO # 0.6 10*3/uL (0.1-1.0); NEUT # 8.7 10*3/uL (2.3-7.9); NEUT % 73.2 % (47.0-73.0); NUCLEATED RED BLOOD CELL 0.2 % (0.0-0.0); PLATELET COUNT AUTOMATED 253 10*3/uL (130-400); RED BLOOD COUNT 3.76 10*6/uL (4.10-5.10); RED CELL DISTRI WIDTH 17.4 % (0-14.5); WHITE BLOOD COUNT 11.9 10*3/uL (4.8-10.8)
[2021-04-20] MEDS ORDERED: LEVOTHYROXINE100 MC1 PO (19:48)
[2021-04-20] MEDS ORDERED: K-TAB ER8 MEQ PO (19:49)
[2021-04-20] MEDS ORDERED: ASPIRIN ADULT L81 M1 PO (19:49)
[2021-04-20] MEDS ORDERED: NEURONTIN100 MG PO (19:50)
[2021-04-20] MEDS ORDERED: BUSPIRONE HCL10 MG PO (19:51)
[2021-04-20] MEDS ORDERED: Hydralazine Hyd25 MG PO (19:51)
[2021-04-20] MEDS ORDERED: TRINTELLIX20 MG PO (19:52)
[2021-04-20 20:01] LABS: ALBUMIN 2.5 gm/dl (3.1-4.5); CREATININE 1.4 mg/dL (0.55-1.02); POTASSIUM 3.4 mmol/L (3.5-5.1); TOTAL PROTEIN 8.8 gm/dL (6.4-8.2)
[2021-04-20 20:09] LABS: BILIRUBIN Negative (Negative); BLOOD 1+ (Negative); CLARITY Turbid (Clear); COLOR Yellow (Yellow); GLUCOSE Negative (Negative); KETONE Negative (Negative); LEUKO ESTERASE 3+ (Negative); NITRITE Positive (Negative); PH 5.5 (4.5-8.0); SPECIFIC GRAVITY 1.025 (1.001-1.030); UROBILINOGEN 0.2 E.U./dl (0.0-1.0)
[2021-04-20 20:27] LABS: BACTERIA 4+; RBC 0-2 rbc/hpf (0-2); WBC TNTC wbc/hpf (0-5)
[2021-04-20 23:43] LABS: ABG BASE EXCESS -3.6 mmol/L (-2.0-2.0); ARTERIAL BLOOD GAS PH 7.446 (7.35-7.45); ARTERIAL BLOOD GAS PO2 78.3 (80-90)
[2021-04-21] VITALS: BP 145/75
[2021-04-21 06:01] LABS: ALBUMIN 2.3 gm/dl (3.1-4.5); ALKALINE PHOSPHATASE 157 U/L (45-117); BUN 26 mg/dl (7-24); CHLORIDE 106 mmol/L (98-107); CREATININE 1.11 mg/dL (0.55-1.02); LDH 345 U/L (84-246); POTASSIUM 3.6 mmol/L (3.5-5.1); SGOT/AST 32 IU/L (3-35); SGPT/ALT 30 U/L (12-78); SODIUM 137 mmol/L (136-145); TOTAL PROTEIN 8.9 gm/dL (6.4-8.2); TRIGLYCERIDES 250 mg/dl (<150)
[2021-04-21 06:30] LABS: HEMATOCRIT 31.2 % (37.0-47.0); MEAN CELL VOLUME 84.8 fl (81.0-99.0); MEAN CORPUSCULAR HGB 26.1 pg (27.0-31.0); MEAN CORPUSCULAR HGB CONC 30.8 g/dl (33.0-37.0); RED BLOOD COUNT 3.68 10*6/uL (4.10-5.10); RED CELL DISTRI WIDTH 17.5 % (0-14.5); WHITE BLOOD COUNT 6.7 10*3/uL (4.8-10.8)
[2021-04-21 06:36] LABS: PLATELET COUNT AUTOMATED 381 10*3/uL (130-400)
[2021-04-21 07:59] LABS: PLASMA CELL 1 % (0-0); PLATELET SUFFICIENCY NORMAL (NORMAL); ROULEAUX MODERATE; TOTAL CELLS COUNTED 100 #CELLS
[2021-04-21 08:00] VITALS: BP 149/79
[2021-04-21 12:00] VITALS: BP 138/82
[2021-04-21 16:00] VITALS: BP 152/78
[2021-04-21 16:22] VITALS: BP 152/78
[2021-04-21 20:00] VITALS: BP 145/84
[2021-04-22 06:21] LABS: ALBUMIN 2.3 gm/dl (3.1-4.5); ALKALINE PHOSPHATASE 166 U/L (45-117); BUN 30 mg/dl (7-24); CHLORIDE 107 mmol/L (98-107); CREATININE 1.07 mg/dL (0.55-1.02); LDH 304 U/L (84-246); POTASSIUM 3.8 mmol/L (3.5-5.1); SGOT/AST 62 IU/L (3-35); SGPT/ALT 42 U/L (12-78); SODIUM 136 mmol/L (136-145); TOTAL PROTEIN 8.5 gm/dL (6.4-8.2); TRIGLYCERIDES 301 mg/dl (<150)
[2021-04-22 06:37] LABS: HEMATOCRIT 31.5 % (37.0-47.0); MEAN CELL VOLUME 84.5 fl (81.0-99.0); MEAN CORPUSCULAR HGB 26.3 pg (27.0-31.0); MEAN CORPUSCULAR HGB CONC 31.1 g/dl (33.0-37.0); MEAN PLATELET VOLUME 10.1 fl (9.6-12.3); PLATELET COUNT AUTOMATED 459 10*3/uL (130-400); RED BLOOD COUNT 3.73 10*6/uL (4.10-5.10); RED CELL DISTRI WIDTH 17.3 % (0-14.5); WHITE BLOOD COUNT 6.8 10*3/uL (4.8-10.8)
[2021-04-22 07:58] LABS: TOTAL CELLS COUNTED 100 #CELLS
[2021-04-22 07:59] LABS: PLATELET SUFFICIENCY HIGH (NORMAL); ROULEAUX MODERATE
[2021-04-22 08:00] VITALS: BP 176/70
[2021-04-22 16:00] VITALS: BP 133/75
[2021-04-22 20:00] VITALS: BP 160/70
[2021-04-23] VITALS: BP 144/90
[2021-04-23 05:28] LABS: ALBUMIN 2.5 gm/dl (3.1-4.5); CREATININE 1.22 mg/dL (0.55-1.02); POTASSIUM 4.3 mmol/L (3.5-5.1); TOTAL PROTEIN 8.5 gm/dL (6.4-8.2)
[2021-04-23 06:12] LABS: HEMATOCRIT 32.3 % (37.0-47.0); LYMPH % 16.7 % (27.0-41.0); MEAN CELL VOLUME 84.8 fl (81.0-99.0); MEAN CORPUSCULAR HGB CONC 30.7 g/dl (33.0-37.0); MONO # 0.3 10*3/uL (0.1-1.0); MONO % 5.6 % (3.0-9.0); NEUT # 4.5 10*3/uL (2.3-7.9); NEUT % 77.2 % (47.0-73.0); PLATELET COUNT AUTOMATED 536 10*3/uL (130-400); RED BLOOD COUNT 3.81 10*6/uL (4.10-5.10); RED CELL DISTRI WIDTH 17.2 % (0-14.5); WHITE BLOOD COUNT 5.8 10*3/uL (4.8-10.8)
[2021-04-23 08:00] VITALS: BP 132/78
[2021-04-23 16:00] VITALS: BP 132/81
[2021-04-23 20:00] VITALS: BP 150/77
[2021-04-24 06:30] LABS: BASO % 0.2 % (0.0-1.0); HEMATOCRIT 31.8 % (37.0-47.0); LYMPH # 0.8 10*3/uL (1.3-4.4); LYMPH % 18.3 % (27.0-41.0); MEAN CORPUSCULAR HGB 26.5 pg (27.0-31.0); MEAN CORPUSCULAR HGB CONC 31.1 g/dl (33.0-37.0); MEAN PLATELET VOLUME 9.9 fl (9.6-12.3); MONO # 0.2 10*3/uL (0.1-1.0); MONO % 4.9 % (3.0-9.0); NEUT # 3.4 10*3/uL (2.3-7.9); NEUT % 75.7 % (47.0-73.0); PLATELET COUNT AUTOMATED 480 10*3/uL (130-400); RED BLOOD COUNT 3.74 10*6/uL (4.10-5.10); RED CELL DISTRI WIDTH 16.9 % (0-14.5); WHITE BLOOD COUNT 4.5 10*3/uL (4.8-10.8)
[2021-04-24 08:00] VITALS: BP 143/65
[2021-04-24 12:29] VITALS: BP 143/71
[2021-04-24 16:00] VITALS: BP 141/63
[2021-04-24 20:00] VITALS: BP 131/63
[2021-04-25] VITALS: BP 143/67
[2021-04-25 06:02] LABS: BASO % 0.2 % (0.0-1.0); HEMATOCRIT 30.4 % (37.0-47.0); LYMPH # 0.8 10*3/uL (1.3-4.4); LYMPH % 18.9 % (27.0-41.0); MEAN CELL VOLUME 85.6 fl (81.0-99.0); MEAN CORPUSCULAR HGB 26.2 pg (27.0-31.0); MEAN CORPUSCULAR HGB CONC 30.6 g/dl (33.0-37.0); MEAN PLATELET VOLUME 9.6 fl (9.6-12.3); MONO # 0.2 10*3/uL (0.1-1.0); MONO % 4.6 % (3.0-9.0); NEUT # 3.3 10*3/uL (2.3-7.9); NEUT % 74.5 % (47.0-73.0); PLATELET COUNT AUTOMATED 424 10*3/uL (130-400); RED BLOOD COUNT 3.55 10*6/uL (4.10-5.10); RED CELL DISTRI WIDTH 16.4 % (0-14.5); WHITE BLOOD COUNT 4.4 10*3/uL (4.8-10.8)
[2021-04-25 06:06] LABS: ALBUMIN 2.3 gm/dl (3.1-4.5); BUN 31 mg/dl (7-24); CHLORIDE 103 mmol/L (98-107); CREATININE 1.01 mg/dL (0.55-1.02); LDH 151 U/L (84-246); POTASSIUM 4.9 mmol/L (3.5-5.1); SGOT/AST 22 IU/L (3-35); SGPT/ALT 42 U/L (12-78); SODIUM 134 mmol/L (136-145); TOTAL PROTEIN 7.2 gm/dL (6.4-8.2)
[2021-04-25 06:07] LABS: ALKALINE PHOSPHATASE 120 U/L (45-117)
[2021-04-25 08:00] VITALS: BP 135/71
[2021-04-25 12:00] VITALS: BP 108/75
[2021-04-25 16:00] VITALS: BP 127/57
[2021-04-25 20:00] VITALS: BP 132/68
[2021-04-26] VITALS (7 sets, daily range): BP systolic 113–141; BP diastolic 60–86
[2021-04-26 05:55] LABS: ALBUMIN 2.4 gm/dl (3.1-4.5); ALKALINE PHOSPHATASE 113 U/L (45-117); BUN 32 mg/dl (7-24); CHLORIDE 102 mmol/L (98-107); CREATININE 0.99 mg/dL (0.55-1.02); LDH 152 U/L (84-246); POTASSIUM 4.8 mmol/L (3.5-5.1); SGOT/AST 18 IU/L (3-35); SGPT/ALT 43 U/L (12-78); SODIUM 132 mmol/L (136-145)
[2021-04-26 06:02] LABS: MEAN CELL VOLUME 84.5 fl (81.0-99.0); MEAN CORPUSCULAR HGB 26.8 pg (27.0-31.0); MEAN CORPUSCULAR HGB CONC 31.7 g/dl (33.0-37.0); MEAN PLATELET VOLUME 9.9 fl (9.6-12.3); PLATELET COUNT AUTOMATED 477 10*3/uL (130-400); RED BLOOD COUNT 3.55 10*6/uL (4.10-5.10); RED CELL DISTRI WIDTH 16.6 % (0-14.5); WHITE BLOOD COUNT 5.2 10*3/uL (4.8-10.8)
[2021-04-26 07:39] LABS: PLATELET SUFFICIENCY HIGH (NORMAL); ROULEAUX SLIGHT; TOTAL CELLS COUNTED 100 #CELLS
[2021-04-27] VITALS: BP 127/69
[2021-04-27 05:25] LABS: ALBUMIN 2.4 gm/dl (3.1-4.5); ALKALINE PHOSPHATASE 111 U/L (45-117); BUN 34 mg/dl (7-24); CHLORIDE 103 mmol/L (98-107); LDH 128 U/L (84-246); POTASSIUM 4.8 mmol/L (3.5-5.1); SGOT/AST 13 IU/L (3-35); SGPT/ALT 35 U/L (12-78); SODIUM 134 mmol/L (136-145); TOTAL PROTEIN 6.9 gm/dL (6.4-8.2)
[2021-04-27 06:16] LABS: HEMATOCRIT 30.9 % (37.0-47.0); MEAN CELL VOLUME 84.9 fl (81.0-99.0); MEAN CORPUSCULAR HGB 26.4 pg (27.0-31.0); MEAN CORPUSCULAR HGB CONC 31.1 g/dl (33.0-37.0); PLATELET COUNT AUTOMATED 463 10*3/uL (130-400); RED BLOOD COUNT 3.64 10*6/uL (4.10-5.10); RED CELL DISTRI WIDTH 16.8 % (0-14.5); WHITE BLOOD COUNT 5.9 10*3/uL (4.8-10.8)
[2021-04-27 07:03] LABS: PLATELET SUFFICIENCY NORMAL (NORMAL); TOTAL CELLS COUNTED 100 #CELLS
[2021-04-27 08:00] VITALS: BP 132/61
[2021-04-27 16:17] VITALS: BP 132/61
== END 2021-04-27 20:15 | disposition home or self-care (01) | DRG 177 ==
LOC: ED 19:07 → 4E 21:03 → EDHOLD 21:03 → 4E 21:42
PROVIDERS: Internal Medicine; Internal Medicine Critical Care Medicine; ADMIT Internal Medicine; ATTEND Internal Medicine
PROC: 5A0935A Assistance with Respiratory Ventilation, Less than 24 Consecutive Hours, High Flow/Velocity Cannula (ICD-10-PCS; 2021-04-20)
PROC: 5A09357 Assistance with Respiratory Ventilation, Less than 24 Consecutive Hours, Continuous Positive Airway Pressure (ICD-10-PCS; 2021-04-23)
PROC: 5A0945A Assistance with Respiratory Ventilation, 24-96 Consecutive Hours, High Flow/Velocity Cannula (ICD-10-PCS; principal; 2021-04-24)
PROC: 5A09357 Assistance with Respiratory Ventilation, Less than 24 Consecutive Hours, Continuous Positive Airway Pressure (ICD-10-PCS; 2021-04-24)
PROC: XW033E5 Introduction of Remdesivir Anti-infective into Peripheral Vein, Percutaneous Approach, New Technology Group 5 (ICD-10-PCS; 2021-04-24)
DX: U07.1 COVID-19 (principal); J12.82 Pneumonia due to coronavirus disease 2019; J96.21 Acute and chronic respiratory failure with hypoxia; J15.9 Unspecified bacterial pneumonia; E43 Unspecified severe protein-calorie malnutrition; N30.00 Acute cystitis without hematuria; N17.9 Acute kidney failure, unspecified; F33.1 Major depressive disorder, recurrent, moderate; F41.1 Generalized anxiety disorder; E03.9 Hypothyroidism, unspecified; K59.00 Constipation, unspecified; K52.9 Noninfective gastroenteritis and colitis, unspecified; D64.9 Anemia, unspecified; E87.6 Hypokalemia; E88.09 Other disorders of plasma-protein metabolism, not elsewhere classified; M48.00 Spinal stenosis, site unspecified; E78.5 Hyperlipidemia, unspecified; R00.1 Bradycardia, unspecified; N18.9 Chronic kidney disease, unspecified; I12.9 Hypertensive chronic kidney disease with stage 1 through stage 4 chronic kidney disease, or unspecified chronic kidney disease; Z68.27 Body mass index [BMI] 27.0-27.9, adult; M13.812 Other specified arthritis, left shoulder; J43.9 Emphysema, unspecified; B96.20 Unspecified Escherichia coli [E. coli] as the cause of diseases classified elsewhere; Z86.73 Personal history of transient ischemic attack (TIA), and cerebral infarction without residual deficits; Z98.891 History of uterine scar from previous surgery; Z82.49 Family history of ischemic heart disease and other diseases of the circulatory system; Z82.5 Family history of asthma and other chronic lower respiratory diseases; Z88.1 Allergy status to other antibiotic agents; Z88.6 Allergy status to analgesic agent; Z79.899 Other long term (current) drug therapy

== ENCOUNTER 2021-09-27 08:21 | Emergency (ER) | payer OTHER, MEDICAID ==
[~2021-09-27] VITALS: Ht 160 cm; Wt 69.4 kg
[~2021-09-27 08:21] MED LIST changes: +ASPIRIN ADULT L81 M1 PO; +BUSPIRONE HCL10 MG PO; +Hydralazine Hyd25 MG PO; +K-TAB ER8 MEQ PO; +LEVOTHYROXINE100 MC1 PO; +NEURONTIN100 MG PO; +TRINTELLIX20 MG PO
== END 2021-09-27 11:04 | disposition home or self-care (01) ==
LOC: ED 08:21
DX: S01.01XA Laceration without foreign body of scalp, initial encounter (principal); I10 Essential (primary) hypertension; J44.9 Chronic obstructive pulmonary disease, unspecified; E03.9 Hypothyroidism, unspecified; Z86.73 Personal history of transient ischemic attack (TIA), and cerebral infarction without residual deficits; Z86.718 Personal history of other venous thrombosis and embolism; Z88.1 Allergy status to other antibiotic agents; Z88.8 Allergy status to other drugs, medicaments and biological substances; Z79.899 Other long term (current) drug therapy; Z79.82 Long term (current) use of aspirin; Z98.890 Other specified postprocedural states; Z90.49 Acquired absence of other specified parts of digestive tract; Z87.891 Personal history of nicotine dependence; W01.190A Fall on same level from slipping, tripping and stumbling with subsequent striking against furniture, initial encounter; Y93.89 Activity, other specified; Y92.89 Other specified places as the place of occurrence of the external cause; Y99.8 Other external cause status

== ENCOUNTER 2021-10-08 18:17 | Inpatient (IN) | payer OTHER, MEDICAID ==
[~2021-10-08] VITALS: Ht 160 cm; Wt 68.0 kg
[2021-10-08 18:21] VITALS: BP 141/85
[2021-10-08 19:29] VITALS: BP 111/76
[2021-10-08 20:16] VITALS: BP 148/83
[2021-10-08 20:33] LABS: ALBUMIN 3.1 gm/dl (3.1-4.5); ALKALINE PHOSPHATASE 131 U/L (45-117); BUN 27 mg/dl (7-24); CHLORIDE 108 mmol/L (98-107); CKMB < 1.0 ng/ml (0.5-3.6); CPK 93 U/L (26-192); CREATININE 1.32 mg/dL (0.55-1.02); POTASSIUM 4.5 mmol/L (3.5-5.1); SGOT/AST 45 IU/L (3-35); SGPT/ALT 46 U/L (12-78); SODIUM 136 mmol/L (136-145); TOTAL PROTEIN 7.9 gm/dL (6.4-8.2)
[2021-10-08 20:57] VITALS: BP 148/78
[2021-10-08 21:13] LABS: HEMATOCRIT 34.5 % (37.0-47.0); MEAN CELL VOLUME 87.8 fl (81.0-99.0); MEAN CORPUSCULAR HGB 27.5 pg (27.0-31.0); MEAN CORPUSCULAR HGB CONC 31.3 g/dl (33.0-37.0); MEAN PLATELET VOLUME 9.1 fl (9.6-12.3); PLATELET COUNT AUTOMATED 304 10*3/uL (130-400); RED BLOOD COUNT 3.93 10*6/uL (4.10-5.10); RED CELL DISTRI WIDTH 16.4 % (0-14.5)
[2021-10-08 21:50] LABS: ATYPICAL LYMPHS 5 % (0-0); BASOPHILS 1 % (0-1); TOTAL CELLS COUNTED 100 #CELLS
[2021-10-08 21:51] LABS: PLATELET SUFFICIENCY NORMAL (NORMAL)
[2021-10-09] MEDS ORDERED: TRELEGY ELLIPT1 EACH IH (00:17)
[2021-10-09] MEDS ORDERED: DULOXETINE HCL30 MG PO (00:17)
[2021-10-09] MEDS ORDERED: PROAIR HFA8.5 GM INH (00:18)
[2021-10-09 00:19] VITALS: BP 139/84
[2021-10-09] MEDS ORDERED: GABAPENTIN400 MG PO (00:19)
[2021-10-09] MEDS ORDERED: HYDROXYZINE PAM50 MG PO (00:21)
[2021-10-09] MEDS ORDERED: CARVEDILOL12.5 MG PO (00:21)
[2021-10-09] MEDS ORDERED: BUSPAR15 MG PO (00:22)
[2021-10-09] MEDS ORDERED: LEVOTHYROXINE88 MCG PO (00:23)
[2021-10-09 05:12] VITALS: BP 124/63
[2021-10-09 06:11] LABS: HEMATOCRIT 32.3 % (37.0-47.0); MEAN CELL VOLUME 89.7 fl (81.0-99.0); MEAN CORPUSCULAR HGB 27.8 pg (27.0-31.0); MEAN PLATELET VOLUME 9.3 fl (9.6-12.3); PLATELET COUNT AUTOMATED 281 10*3/uL (130-400); RED CELL DISTRI WIDTH 16.6 % (0-14.5); WHITE BLOOD COUNT 9.3 10*3/uL (4.8-10.8)
[2021-10-09 06:44] LABS: ALBUMIN 3.1 gm/dl (3.1-4.5); CREATININE 1.49 mg/dL (0.55-1.02); POTASSIUM 4.3 mmol/L (3.5-5.1)
[2021-10-09 06:49] LABS: FREE T4 0.8 ng/dl (0.76-1.46); THYROID STIM HORMONE (HS) 5.54 uIU/ml (0.358-4.75); TOTAL PROTEIN 7.4 gm/dL (6.4-8.2)
[2021-10-09 07:11] LABS: BASOPHILS 1 % (0-1); PLATELET SUFFICIENCY NORMAL (NORMAL); TOTAL CELLS COUNTED 100 #CELLS
[2021-10-09 07:16] LABS: BILIRUBIN Negative (Negative); BLOOD Negative (Negative); CLARITY Cloudy (Clear); COLOR Yellow (Yellow); GLUCOSE Negative (Negative); KETONE Negative (Negative); LEUKO ESTERASE 2+ (Negative); NITRITE Negative (Negative); UROBILINOGEN 0.2 E.U./dl (0.0-1.0)
[2021-10-09 07:41] VITALS: BP 112/71
[2021-10-09 08:55] LABS: VITAMIN D, 25-HYDROXY 36.4 ng/mL (30-100)
[2021-10-09 09:13] LABS: BACTERIA 4+; WBC 31-40 wbc/hpf (0-5)
== END 2021-10-09 18:00 | disposition left against medical advice (07) | DRG 69 ==
LOC: ED 18:17 → EDHOLD 23:35
PROVIDERS: Emergency Medicine; Internal Medicine; ADMIT Internal Medicine; ATTEND Internal Medicine
DX: G45.9 Transient cerebral ischemic attack, unspecified (principal); N17.0 Acute kidney failure with tubular necrosis; R65.10 Systemic inflammatory response syndrome (SIRS) of non-infectious origin without acute organ dysfunction; I12.9 Hypertensive chronic kidney disease with stage 1 through stage 4 chronic kidney disease, or unspecified chronic kidney disease; N18.31 Chronic kidney disease, stage 3a; R73.9 Hyperglycemia, unspecified; R29.701 NIHSS score 1; Z20.822 Contact with and (suspected) exposure to COVID-19; Z88.6 Allergy status to analgesic agent; Z88.1 Allergy status to other antibiotic agents; Z88.8 Allergy status to other drugs, medicaments and biological substances; Z90.49 Acquired absence of other specified parts of digestive tract; Z98.891 History of uterine scar from previous surgery; Z82.49 Family history of ischemic heart disease and other diseases of the circulatory system; Z82.5 Family history of asthma and other chronic lower respiratory diseases; Z79.51 Long term (current) use of inhaled steroids; Z79.82 Long term (current) use of aspirin; Z79.899 Other long term (current) drug therapy

== ENCOUNTER → 2022-01-14 | Outpatient (CLI) | payer OTHER ==
[~2022-01-14] MED LIST changes: +BUSPAR15 MG PO; +CARVEDILOL12.5 MG PO; +DULOXETINE HCL30 MG PO; +GABAPENTIN400 MG PO; +HYDROXYZINE PAM50 MG PO; +LEVOTHYROXINE88 MCG PO; +PROAIR HFA8.5 GM INH; +TRELEGY ELLIPT1 EACH IH
== END | disposition home or self-care (01) ==
LOC: CT 08:49
PROVIDERS: ATTEND Student in an Organized Health Care Education/Training Program
DX: S32.000A Wedge compression fracture of unspecified lumbar vertebra, initial encounter for closed fracture (principal); M47.816 Spondylosis without myelopathy or radiculopathy, lumbar region; M43.17 Spondylolisthesis, lumbosacral region; M51.37 Other intervertebral disc degeneration, lumbosacral region; M47.812 Spondylosis without myelopathy or radiculopathy, cervical region; X58.XXXA Exposure to other specified factors, initial encounter; Y93.89 Activity, other specified; Y92.89 Other specified places as the place of occurrence of the external cause; Y99.8 Other external cause status

== ENCOUNTER 2022-02-10 14:07 | Emergency (ER) | payer OTHER ==
[~2022-02-10] VITALS: Wt 76.2 kg
[2022-02-10 14:46] LABS: BASO # 0.1 10*3/uL (0.0-0.1); BASO % 0.6 % (0.0-1.0); EOS # 0.4 10*3/uL (0.0-0.4); EOS % 4.5 % (1.0-4.0); HEMATOCRIT 32.9 % (37.0-47.0); LYMPH % 36.7 % (27.0-41.0); MEAN CELL VOLUME 94.8 fl (81.0-99.0); MEAN CORPUSCULAR HGB 29.4 pg (27.0-31.0); MONO # 1.1 10*3/uL (0.1-1.0); MONO % 14.2 % (3.0-9.0); NEUT # 3.5 10*3/uL (2.3-7.9); NEUT % 43.8 % (47.0-73.0); PLATELET COUNT AUTOMATED 243 10*3/uL (130-400); RED BLOOD COUNT 3.47 10*6/uL (4.10-5.10); RED CELL DISTRI WIDTH 15.6 % (0-14.5)
[2022-02-10 14:59] LABS: ACT PARTIAL THROMBO TIME 24.8 SECONDS (20.0-32.1)
[2022-02-10 15:15] LABS: CREATININE 1.31 mg/dL (0.55-1.02); POTASSIUM 3.8 mmol/L (3.5-5.1); TOTAL PROTEIN 7.5 gm/dL (6.4-8.2)
== END 2022-02-10 17:53 | disposition home or self-care (01) ==
LOC: ED 14:07
PROVIDERS: Emergency Medicine
DX: I10 Essential (primary) hypertension (principal)

== ENCOUNTER → 2022-06-01 | Outpatient (CLI) | payer OTHER | END | disposition home or self-care (01) | LOC: RAD 12:52 | PROVIDERS: ATTEND Urology | DX: S72.142A Displaced intertrochanteric fracture of left femur, initial encounter for closed fracture (principal); S72.141A Displaced intertrochanteric fracture of right femur, initial encounter for closed fracture; X58.XXXA Exposure to other specified factors, initial encounter; Y93.89 Activity, other specified; Y92.89 Other specified places as the place of occurrence of the external cause; Y99.8 Other external cause status ==

== ENCOUNTER 2022-10-31 18:57 | Emergency (ER) | payer OTHER ==
[~2022-10-31] VITALS: Ht 160 cm; Wt 84.8 kg
[2022-10-31] MEDS ORDERED: PERCOCET 5-3251 EACH PO (22:29)
== END 2022-10-31 22:52 | disposition home or self-care (01) ==
LOC: ED 18:57
DX: S82.832A Other fracture of upper and lower end of left fibula, initial encounter for closed fracture (principal); I10 Essential (primary) hypertension; J44.9 Chronic obstructive pulmonary disease, unspecified; F32.A Depression, unspecified; F41.9 Anxiety disorder, unspecified; Z91.011 Allergy to milk products; Z88.8 Allergy status to other drugs, medicaments and biological substances; Z98.890 Other specified postprocedural states; Z90.49 Acquired absence of other specified parts of digestive tract; Z87.891 Personal history of nicotine dependence; F12.90 Cannabis use, unspecified, uncomplicated; F10.10 Alcohol abuse, uncomplicated; X50.1XXA Overexertion from prolonged static or awkward postures, initial encounter; Y93.89 Activity, other specified; Y92.009 Unspecified place in unspecified non-institutional (private) residence as the place of occurrence of the external cause; Y99.8 Other external cause status

== ENCOUNTER 2022-11-05 12:29 | Emergency (ER) | payer OTHER ==
[~2022-11-05] VITALS: Ht 160 cm; Wt 74.8 kg
[~2022-11-05 12:29] MED LIST changes: +PERCOCET 5-3251 EACH PO
[2022-11-05 12:56] LABS: BASO # 0.1 10*3/uL (0.0-0.1); BASO % 0.5 % (0.0-1.0); EOS # 0.2 10*3/uL (0.0-0.4); EOS % 2.2 % (1.0-4.0); HEMATOCRIT 35.7 % (37.0-47.0); LYMPH # 3.3 10*3/uL (1.3-4.4); LYMPH % 32.9 % (27.0-41.0); MEAN CELL VOLUME 92.5 fl (81.0-99.0); MEAN CORPUSCULAR HGB CONC 31.4 g/dl (33.0-37.0); MEAN PLATELET VOLUME 9.2 fl (9.6-12.3); MONO % 10.1 % (3.0-9.0); NEUT # 5.5 10*3/uL (2.3-7.9); PLATELET COUNT AUTOMATED 248 10*3/uL (130-400); RED BLOOD COUNT 3.86 10*6/uL (4.10-5.10); RED CELL DISTRI WIDTH 14.6 % (0-14.5); WHITE BLOOD COUNT 10.1 10*3/uL (4.8-10.8)
[2022-11-05 13:11] LABS: POTASSIUM 4.2 mmol/L (3.4-5.1); TOTAL PROTEIN 7.7 gm/dL (6.0-8.0)
[2022-11-05 13:42] LABS: BILIRUBIN Negative (Negative); BLOOD Negative (Negative); CLARITY Clear (Clear); COLOR Yellow (Yellow); GLUCOSE Negative (Negative); KETONE Negative (Negative); LEUKO ESTERASE Negative (Negative); NITRITE Negative (Negative); PH 5.5 (4.5-8.0); UROBILINOGEN 0.2 E.U./dl (0.0-1.0)
[2022-11-05 14:18] LABS: BACTERIA TRACE; EPITHELIAL CELLS 0-2; WBC 0-2 wbc/hpf (0-5)
[2022-11-05] MEDS ORDERED: HYDROCODONE-AC1 EAC1 PO (14:32)
[2022-11-05] MEDS ORDERED: CIPRO500 MG PO (14:32)
== END 2022-11-05 14:25 | disposition home or self-care (01) ==
LOC: ED 12:29
PROVIDERS: Internal Medicine
DX: N39.0 Urinary tract infection, site not specified (principal); R33.9 Retention of urine, unspecified; S82.402D Unspecified fracture of shaft of left fibula, subsequent encounter for closed fracture with routine healing; J44.9 Chronic obstructive pulmonary disease, unspecified; F32.A Depression, unspecified; I10 Essential (primary) hypertension; F41.9 Anxiety disorder, unspecified; Z88.1 Allergy status to other antibiotic agents; Z91.011 Allergy to milk products; Z88.8 Allergy status to other drugs, medicaments and biological substances; Z90.49 Acquired absence of other specified parts of digestive tract; Z98.890 Other specified postprocedural states; Z87.891 Personal history of nicotine dependence; X58.XXXD Exposure to other specified factors, subsequent encounter

== ENCOUNTER 2023-09-13 01:33 | Emergency (ER) | payer OTHER ==
[~2023-09-13] VITALS: Ht 170.1 cm; Wt 127.0 kg
[~2023-09-13 01:33] MED LIST changes: +CELECOXIB200 M1 PO; +FUROSEMIDE20 M1 PO; +GABAPENTIN600 MG PO; +HYDROCODONE-AC1 EAC1 PO; +OMEPRAZOLE MAGN20 MG PO; +ROSUVASTATIN CA40 MG PO; +Synthroid,Levo88 MCG PO; +TRELEGY ELLIPT1 EAC1 INH
== END 2023-09-13 03:48 ==
LOC: ED 01:33
DX: I46.9 Cardiac arrest, cause unspecified (principal); E87.6 Hypokalemia; J44.9 Chronic obstructive pulmonary disease, unspecified; F32.A Depression, unspecified; E03.9 Hypothyroidism, unspecified; I10 Essential (primary) hypertension; F41.9 Anxiety disorder, unspecified; F12.90 Cannabis use, unspecified, uncomplicated; Z86.73 Personal history of transient ischemic attack (TIA), and cerebral infarction without residual deficits; Z88.1 Allergy status to other antibiotic agents; Z91.011 Allergy to milk products; Z88.6 Allergy status to analgesic agent; Z88.8 Allergy status to other drugs, medicaments and biological substances; Z98.890 Other specified postprocedural states; Z90.49 Acquired absence of other specified parts of digestive tract; Z87.891 Personal history of nicotine dependence